=== PATIENT | male | born 1970 | race Caucasian/White ===

== ENCOUNTER 2024-03-22 18:21 | Inpatient (IN) ==
[2024-03-22] MEDS: ONDANSETRON INJ 2 MG/ML 2 ML VIAL IV STA (18:46)
[2024-03-22 19:07] LABS: Basophils # (auto) 0.03 K/uL (0.00-0.20); Basophils % (auto) 0.6 %; Eosinophils # (auto) 0.03 K/uL (0.00-0.50); Eosinophils % (auto) 0.6 %; Hematocrit (blood only) 41.8 % (42.0-52.0); Hemoglobin 15.2 g/dl (14.0-18.0); Immature Granulocytes # (auto) 0.02 K/uL (0.01-0.20); Immature Granulocytes % (auto) 0.4 %; Lymphocytes % (auto) 18.6 %; Mean Corpuscular Hemoglobin 32.9 pg (25.0-34.0); Mean Corpuscular Hgb Conc 36.4 g/dL (32.0-36.0); Mean Corpuscular Volume 90.5 fL (80.0-100.0); Mean Platelet Volume 9.5 fL (9.4-12.4); Monocytes # (auto) 0.38 K/uL (0.11-0.59); Monocytes % (auto) 7.8 %; Neutrophils # (auto) 3.49 K/uL (1.40-6.50); Platelet Count 225 K/uL (130-400); RDW Coefficient of Variation 11.9 % (11.5-14.5); RDW Standard Deviation 39.3 fL (36.4-46.3); Red Blood Count 4.62 M/uL (4.70-6.10); White Blood Count 4.85 K/ul (4.8-10.8)
[2024-03-22] MEDS: hydrALAZINE HCL 20 MG/ML VIAL IV STA ×2 (19:21→20:17)
[2024-03-22 19:22] LABS: Albumin Globulin Ratio 1.4 (0.9-2); Albumin Level 4.6 gm/dl (3.4-5.0); BUN Creatinine Ratio 7.3 (10-20); Bilirubin,Total 0.7 mg/dl (0.2-1.0); Calcium 9.5 mg/dl (8.6-10.3); Creatinine Clr Calc Pharmacy 121.7 ml/min; Globulin 3.3 gm/dl (2.5-4.0); Magnesium 1.8 mg/dl (1.7-2.4); Potassium 4.5 mmol/L (3.5-5.1); Total Protein 7.9 gm/dl (6.0-8.3)
--- NOTE | 2024-03-22 19:24 | Emergency Department Note ---
Impression & Plan Nausea & vomiting, Hypertensive urgency, Atrial fibrillation with rapid ventricular response ED Provider Note HISTORY OF PRESENT ILLNESS: Patient is a 54-year-old male presenting with persistent vomiting. Patient was seen earlier in the emergency department after being evaluated for a fall downstairs 3 days ago. Patient denies losing consciousness with the episode. He states that he had been instructed that he may have a concussion from his discharge earlier today. He was discharged with concussion precautions and patient states when he went home to lay down he immediately had to run to the bathroom because he started vomiting. Family reports she has had 4-5 episodes of vomiting since discharge. Patient denies any current abdominal pain or nausea. Denies any chest pain or shortness of breath. He is complaining of a pain in the back of his head. Denies any changes in vision. Denies any numbness or tingling or weakness in extremities. He was started on lisinopril earlier today on his discharge from the ER. Patient denies any anticoagulation or antiplatelet use. ROS: as above PHYSICAL EXAM: Constitutional: Patient appears in no acute distress. HENT: Head: Normocephalic and atraumatic. Eyes: EOMI, PERRL Mouth/Throat: Mucous membranes moist. Neck: Trachea midline. Neck supple. No midline cervical spine TTP Cardiovascular: RRR, No murmurs, rubs or gallops. Intact distal pulses. Pulmonary/Chest: No respiratory distress. Breath sounds clear and equal bilaterally. No wheezes or rales. Abdominal: Abdomen soft, no tenderness, rebound or guarding. Musculoskeletal: No edema, tenderness or deformity noted. Skin: Warm and dry. No rash, erythema, pallor or cyanosis Psychiatric: Appropriate mood and affect for situation. Neurological: Alert and keenly responsive. CN II-XII grossly intact, moving all extremities equally and fully. MDM: - Vitals signs showed hypertension. - History obtained via patient. History as above. - Chronic conditions affecting care: DM-2; HLD; GERD; HTN - Differential diagnoses include, but are not limited to: Electrolyte abnormality; ACS; intracranial hemorrhage; dehydration - Order placed for continuous cardiac monitoring. At this time, monitor showed rate of 96 bpm with normal sinus rhythm, per my interpretation. - External medical records reviewed. Primary care visit note dated 04/02/2023 was reviewed. Patient follows in their clinic for his GERD and type 2 diabetes. He is also seen for his hypertension and was on lisinopril 5 mg. - Laboratory workup interpreted by myself showed normal WBC; normal hemoglobin; elevated lactate (2.5); normal electrolytes; hyperglycemia (glucose 199); normal lipase; normal troponin - UA negative for infection - Viral respiratory panel negative - Given patient's repeat fall and persistent vomiting, repeat CT head was obtained. CT head from earlier today was negative. CT head without contrast negative for acute pathology. - Patient given 4 mg IV zofran for nausea and 10 mg IV hydralazine for his BP. Minimal improvement in blood pressure. A repeat 10 mg IV hydralazine was ordered. Blood pressure did trend downward to the 180s systolic. - Around 21:00, patient was noted to go into atrial fibrillation on the monitor. An EKG was obtained and interpreted by myself at 21:06 showed atrial fibrillation. Rate tachycardic at 136 bpm. QT 258. No acute ischemic changes. - 20 mg IV cardizem and cardizem gtt ordered. TSH added to workup. - Patient given 1L NS for hydration in setting of multiple episodes of vomiting - Discussion was had with rifle case repairer about patient's case and need for admission - Hospitalist, Dr. Portillo, consulted for admission - Patient admitted to [facility] for further evaluation and management. I have personally spent 63 minutes of critical care time in the direct management of this patient. This includes bedside care, interpretation of diagnostic studies, and testing, discussion with consultants, patient, and family members, and other required patient management activities. This 63 minutes is in excess of all separately billable procedures. ASSESSMENT AND PLAN: Diagnosis: Nausea and vomiting; hypertensive urgency; A-fib with RVR Plan: admit Past Med/Surg History Problem List (Updated 03/22/24 @ 22:02 by Alexia Carrasquillo MD) Atrial fibrillation with rapid ventricular response (Acute) Hypertensive urgency (Acute) Nausea & vomiting (Acute) Headache (Acute) Right groin pain (Acute) Closed head injury (Acute) Fall down steps (Acute) Examination, routine, over 18 years of age Chronic gastroesophageal reflux disease Dyslipidemia Glaucoma Type 2 diabetes mellitus Medical History Examination, routine, over 18 years of age Glaucoma Type 2 diabetes mellitus Surgical History History of shoulder surgery Family History Mother Myocardial infarction Brother Diabetes Father Prostate cancer Sister Bone cancer Denies family history of Ovarian cancer Breast cancer Colorectal cancer Social History Smoking Status: Never smoker Tobacco Type: Smokeless Tobacco (Dip or Chew) Second Hand Exposure: No; Do You Dip or Chew Tobacco: Yes; Hx Alcohol Use: Yes Alcohol type: beer Alcohol Intake Frequency: Monthly or Less Hx Substance Use: No Preferred Language: Faroese Communication Ability: Effective Visual Impairment: No Limitations Hearing Ability: Normal Convertible Sofa Bedspring Tester Required: No marital status: Current Living Situation: Alone current occupational status: employed 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 How many Children do You have: 1 Feels Safe at Home: Yes Childhood Exposure to Second-Hand Smoke: Yes Diet: regular caffeine: Yes during the past year weight has: remained stable Dental Care, Regularly: No Physical Activity Frequency: Daily Seatbelt Use: always Sunscreen Use: No Assistive Devices: Glasses Allergies Allergies Allergy/AdvReac Type Severity Reaction Status Date / Time No Known Allergies Allergy Unverified 04/02/23 10:28 Home Meds Home Medications Medication Instructions Recorded Confirmed aspirin 81 mg tablet,delayed 81 mg PO DAILY 05/15/18 04/02/23 release atorvastatin 80 mg tablet 80 mg PO DAILY 05/15/18 04/02/23 meloxicam 7.5 mg tablet 7.5 mg PO DAILY PRN 04/02/23 Previous Rx's Medication Instructions Recorded cholecalciferol (vitamin D3) 125 125 mcg PO DAILY #90 caps 12/24/22 mcg (5,000 unit) capsule magnesium oxide 400 mg PO DAILY #90 caps 12/24/22 lisinopril 2.5 mg tablet 5 mg (2 x 2.5 mg) PO DAILY #90 tabs 12/30/22 metformin 500 mg tablet 500 mg PO BID #90 tabs 12/30/22 ezetimibe 10 mg tablet (Zetia) 10 mg PO DAILY #30 tabs 01/05/23 lisinopril 5 mg tablet 5 mg PO DAILY #30 tabs 03/22/24 metformin 500 mg tablet,extended 500 mg PO DAILY #30 tabs 03/22/24 release 24 hr Results & Data (ED) Vital Signs Vital Signs - 24 hr 03/22/24 18:28 03/22/24 19:11 03/22/24 19:14 Temperature 36.8 C Temperature Source Temporal Artery Scan Pulse Rate 89 Pulse Rate [Apical] 81 93 H Pulse Rate from SpO2 Sensor Pulse Rhythm Regular Pulse Strength Normal Respiratory Rate 20 16 19 Respiratory Effort / Characteristics Non-Labored Spontaneous Non-Labored Spontaneous Respiratory Depth Normal Normal Respiratory Pattern Regular Blood Pressure 227/130 H Blood Pressure [Right Arm] 225/168 H 216/106 H Blood Pressure Mean 162 Blood Pressure Mean [Right Arm] 187 142 Blood Pressure Position Sitting Blood Pressure Position [Right Arm] Sitting Sitting Pulse Oximetry 97 99 98 Oxygen Delivery Method Room Air Room Air Room Air Sepsis Recent Fever Within 48 Hours No Sepsis New/Unexplained Change in Mental Status No Sepsis Action Taken by Nursing No Action Required 03/22/24 19:20 03/22/24 19:36 03/22/24 19:45 Temperature Temperature Source Pulse Rate Pulse Rate [Apical] 96 H 93 H Pulse Rate from SpO2 Sensor Pulse Rhythm Pulse Strength Respiratory Rate Respiratory Effort / Characteristics Respiratory Depth Respiratory Pattern Blood Pressure 184/105 H Blood Pressure [Right Arm] 211/143 H 212/97 H Blood Pressure Mean 133 Blood Pressure Mean [Right Arm] 165 135 Blood Pressure Position Blood Pressure Position [Right Arm] Sitting Sitting Pulse Oximetry Oxygen Delivery Method Sepsis Recent Fever Within 48 Hours Sepsis New/Unexplained Change in Mental Status Sepsis Action Taken by Nursing 03/22/24 19:45 03/22/24 20:00 03/22/24 20:03 Temperature Temperature Source Pulse Rate 96 H 96 H Pulse Rate [Apical] Pulse Rate from SpO2 Sensor 93 H 89 Pulse Rhythm Pulse Strength Respiratory Rate 17 16 Respiratory Effort / Characteristics Respiratory Depth Respiratory Pattern Blood Pressure 184/103 H Blood Pressure [Right Arm] Blood Pressure Mean 134 Blood Pressure Mean [Right Arm] Blood Pressure Position Blood Pressure Position [Right Arm] Pulse Oximetry 98 95 Oxygen Delivery Method Room Air Room Air Sepsis Recent Fever Within 48 Hours Sepsis New/Unexplained Change in Mental Status Sepsis Action Taken by Nursing 03/22/24 20:16 03/22/24 20:30 03/22/24 20:33 Temperature Temperature Source Pulse Rate 112 H Pulse Rate [Apical] 102 H Pulse Rate from SpO2 Sensor 85 Pulse Rhythm Pulse Strength Respiratory Rate 18 19 Respiratory Effort / Characteristics Respiratory Depth Respiratory Pattern Blood Pressure 206/111 H Blood Pressure [Right Arm] 210/95 H Blood Pressure Mean 141 Blood Pressure Mean [Right Arm] 133 Blood Pressure Position Blood Pressure Position [Right Arm] Sitting Pulse Oximetry 98 98 Oxygen Delivery Method Room Air Room Air Sepsis Recent Fever Within 48 Hours Sepsis New/Unexplained Change in Mental Status Sepsis Action Taken by Nursing 03/22/24 20:39 03/22/24 20:45 03/22/24 21:08 Temperature Temperature Source Pulse Rate 116 H 146 H Pulse Rate [Apical] Pulse Rate from SpO2 Sensor 88 Pulse Rhythm Pulse Strength Respiratory Rate 19 Respiratory Effort / Characteristics Respiratory Depth Respiratory Pattern Blood Pressure 199/107 H Blood Pressure [Right Arm] Blood Pressure Mean 164 Blood Pressure Mean [Right Arm] Blood Pressure Position Blood Pressure Position [Right Arm] Pulse Oximetry 97 Oxygen Delivery Method Room Air Sepsis Recent Fever Within 48 Hours Sepsis New/Unexplained Change in Mental Status Sepsis Action Taken by Nursing 03/22/24 21:15 03/22/24 21:15 03/22/24 21:30 Temperature Temperature Source Pulse Rate 148 H Pulse Rate [Apical] Pulse Rate from SpO2 Sensor 136 H Pulse Rhythm Pulse Strength Respiratory Rate 16 Respiratory Effort / Characteristics Respiratory Depth Respiratory Pattern Blood Pressure 166/107 H 139/102 H Blood Pressure [Right Arm] Blood Pressure Mean 139 126 Blood Pressure Mean [Right Arm] Blood Pressure Position Blood Pressure Position [Right Arm] Pulse Oximetry 96 Oxygen Delivery Method Room Air Sepsis Recent Fever Within 48 Hours Sepsis New/Unexplained Change in Mental Status Sepsis Action Taken by Nursing 03/22/24 21:33 03/22/24 21:39 03/22/24 21:45 Temperature Temperature Source Pulse Rate 120 H 135 H Pulse Rate [Apical] Pulse Rate from SpO2 Sensor 124 H 139 H Pulse Rhythm Pulse Strength Respiratory Rate 18 17 Respiratory Effort / Characteristics Respiratory Depth Respiratory Pattern Blood Pressure 137/97 Blood Pressure [Right Arm] Blood Pressure Mean 103 Blood Pressure Mean [Right Arm] Blood Pressure Position Blood Pressure Position [Right Arm] Pulse Oximetry 97 96 Oxygen Delivery Method Room Air Room Air Sepsis Recent Fever Within 48 Hours Sepsis New/Unexplained Change in Mental Status Sepsis Action Taken by Nursing Laboratory Data 03/22/24 18:46 03/22/24 18:46 Lab Results 03/22/24 03/22/24 03/22/24 Range/Units 18:46 19:14 20:25 WBC 4.85 (4.8-10.8) K/ul RBC 4.62 L (4.70-6.10) M/uL Hgb 15.2 (14.0-18.0) g/dl Hct 41.8 L (42.0-52.0) % MCV 90.5 (80.0-100.0) fL MCH 32.9 (25.0-34.0) pg MCHC 36.4 H (32.0-36.0) g/dL RDW Std Deviation 39.3 (36.4-46.3) fL RDW Coeff of Noe 11.9 (11.5-14.5) % Plt Count 225 (130-400) K/uL MPV 9.5 (9.4-12.4) fL Immature Gran % (Auto) 0.4 % Neut % (Auto) 72.0 % Lymph % (Auto) 18.6 % Stewart % (Auto) 7.8 % Eos % (Auto) 0.6 % Baso % (Auto) 0.6 % Neut # (Auto) 3.49 (1.40-6.50) K/uL Lymph # (Auto) 0.90 L (1.20-3.40) K/uL Stewart # (Auto) 0.38 (0.11-0.59) K/uL Eos # (Auto) 0.03 (0.00-0.50) K/uL Baso # (Auto) 0.03 (0.00-0.20) K/uL Immature Gran # (Auto) 0.02 (0.01-0.20) K/uL Sodium 136 (136-145) mmol/L Potassium 4.5 (3.5-5.1) mmol/L Chloride 99 (98-107) mmol/L Carbon Dioxide 29 (21-32) mmol/L Anion Gap 8 (3-11) BUN 6 (6-23) mg/dl Creatinine 0.82 (0.6-1.4) mg/dl Est Cr Clr Drug Dosing 121.7 ml/min eGFR 103.74 BUN/Creatinine Ratio 7.3 L (10-20) Glucose 199 H (70-99(Fasting)) mg/dl Lactate 2.5 H* (0.4-2.0) mmol/L Calcium 9.5 (8.6-10.3) mg/dl Magnesium 1.8 (1.7-2.4) mg/dl Total Bilirubin 0.7 (0.2-1.0) mg/dl AST 31 (13-39) U/L ALT 28 (7-52) U/L Alkaline Phosphatase 48 (34-104) U/L Troponin I High Sens (0-20) pg/ml Total Protein 7.9 (6.0-8.3) gm/dl Albumin 4.6 (3.4-5.0) gm/dl Globulin 3.3 (2.5-4.0) gm/dl Albumin/Globulin Ratio 1.4 (0.9-2) Lipase 31 (11-82) U/L Urine Color Yellow Urine Appearance Clear (Clear) Urine pH 6.5 (4.5-7.5) Ur Specific [place] 1.005 (1.000-1.030) Urine Protein Trace H (Negative) Urine Glucose (UA) Trace H (Negative) Urine Ketones Negative (Negative) Urine Blood Negative (Negative) Urine Nitrite Negative (Negative) Urine Bilirubin Negative (Negative) Urine Urobilinogen Negative (Negative) Ur Leukocyte Esterase Negative (Negative) Urine WBC (Auto) 0-5 (0-5) /hpf Urine RBC (Auto) 0-2 (0-2) /hpf U Hyaline Cast (Auto) 0-2 (0-2) /lpf U Epithel Cells (Auto) 0-2 (0-2) /hpf Urine Bacteria (Auto) None Seen (None Seen) Adenovirus (PCR) Not Detected (NotDetected) B. pertussis DNA (PCR) Not Detected (NotDetected) B.parapertussis DNA PCR Not Detected (NotDetected) C. pneumoniae DNA (PCR) Not Detected (NotDetected) Coronavirus OC43 (PCR) Not Detected (NotDetected) Coronavirus HKU1 (PCR) Not Detected (NotDetected) Coronavirus 229E (PCR) Not Detected (NotDetected) SARS-CoV-2 (PCR) Not Detected (NotDetected) Coronavirus NL63 (PCR) Not Detected (NotDetected) Human Metapneumovir PCR Not Detected (NotDetected) Influenza Type A (PCR) Not Detected (NotDetected) Influenza Type B (PCR) Not Detected (NotDetected) M. pneumoniae (PCR) Not Detected (NotDetected) Parainfluenza 1 (PCR) Not Detected (NotDetected) Parainfluenza 2 (PCR) Not Detected (NotDetected) Parainfluenza 3 (PCR) Not Detected (NotDetected) Parainfluenza 4 (PCR) Not Detected (NotDetected) RSV (PCR) Not Detected (NotDetected) Entero/Rhino (PCR) Not Detected (NotDetected) 03/22/24 Range/Units 21:20 WBC (4.8-10.8) K/ul RBC (4.70-6.10) M/uL Hgb (14.0-18.0) g/dl Hct (42.0-52.0) % MCV (80.0-100.0) fL MCH (25.0-34.0) pg MCHC (32.0-36.0) g/dL RDW Std Deviation (36.4-46.3) fL RDW Coeff of Noe (11.5-14.5) % Plt Count (130-400) K/uL MPV (9.4-12.4) fL Immature Gran % (Auto) % Neut % (Auto) % Lymph % (Auto) % Stewart % (Auto) % Eos % (Auto) % Baso % (Auto) % Neut # (Auto) (1.40-6.50) K/uL Lymph # (Auto) (1.20-3.40) K/uL Stewart # (Auto) (0.11-0.59) K/uL Eos # (Auto) (0.00-0.50) K/uL Baso # (Auto) (0.00-0.20) K/uL Immature Gran # (Auto) (0.01-0.20) K/uL Sodium (136-145) mmol/L Potassium (3.5-5.1) mmol/L Chloride (98-107) mmol/L Carbon Dioxide (21-32) mmol/L Anion Gap (3-11) BUN (6-23) mg/dl Creatinine (0.6-1.4) mg/dl Est Cr Clr Drug Dosing ml/min eGFR BUN/Creatinine Ratio (10-20) Glucose (70-99(Fasting)) mg/dl Lactate 2.6 H* (0.4-2.0) mmol/L Calcium (8.6-10.3) mg/dl Magnesium (1.7-2.4) mg/dl Total Bilirubin (0.2-1.0) mg/dl AST (13-39) U/L ALT (7-52) U/L Alkaline Phosphatase (34-104) U/L Troponin I High Sens 11.1 (0-20) pg/ml Total Protein (6.0-8.3) gm/dl Albumin (3.4-5.0) gm/dl Globulin (2.5-4.0) gm/dl Albumin/Globulin Ratio (0.9-2) Lipase (11-82) U/L Urine Color Urine Appearance (Clear) Urine pH (4.5-7.5) Ur Specific [place] (1.000-1.030) Urine Protein (Negative) Urine Glucose (UA) (Negative) Urine Ketones (Negative) Urine Blood (Negative) Urine Nitrite (Negative) Urine Bilirubin (Negative) Urine Urobilinogen (Negative) Ur Leukocyte Esterase (Negative) Urine WBC (Auto) (0-5) /hpf Urine RBC (Auto) (0-2) /hpf U Hyaline Cast (Auto) (0-2) /lpf U Epithel Cells (Auto) (0-2) /hpf Urine Bacteria (Auto) (None Seen) Adenovirus (PCR) (NotDetected) B. pertussis DNA (PCR) (NotDetected) B.parapertussis DNA PCR (NotDetected) C. pneumoniae DNA (PCR) (NotDetected) Coronavirus OC43 (PCR) (NotDetected) Coronavirus HKU1 (PCR) (NotDetected) Coronavirus 229E (PCR) (NotDetected) SARS-CoV-2 (PCR) (NotDetected) Coronavirus NL63 (PCR) (NotDetected) Human Metapneumovir PCR (NotDetected) Influenza Type A (PCR) (NotDetected) Influenza Type B (PCR) (NotDetected) M. pneumoniae (PCR) (NotDetected) Parainfluenza 1 (PCR) (NotDetected) Parainfluenza 2 (PCR) (NotDetected) Parainfluenza 3 (PCR) (NotDetected) Parainfluenza 4 (PCR) (NotDetected) RSV (PCR) (NotDetected) Entero/Rhino (PCR) (NotDetected) Administered Medications Diltiazem HCl 125 mg/ Dextrose 125 mls @ 5 mls/hr IV .Q24H [facility]; Protocol Stop: 04/21/24 21:14 Last Admin: 03/22/24 21:22 Dose: 5 mg/hr, 5 mls/hr Documented By: Co-signed By: DEBORAH Discontinued Medications Diltiazem HCl (Diltiazem Hcl 5 Mg/Ml 5 Ml Vial) 20 mg IV NOW STA Stop: 03/22/24 21:10 Last Admin: 03/22/24 21:20 Dose: 20 mg Documented By: Co-signed By: THAD Hydralazine HCl (Hydralazine Hcl 20 Mg/Ml Vial) 10 mg IV NOW STA Stop: 03/22/24 19:17 Last Admin: 03/22/24 19:21 Dose: 10 mg Documented By: Hydralazine HCl (Hydralazine Hcl 20 Mg/Ml Vial) 10 mg IV NOW STA Stop: 03/22/24 19:53 Last Admin: 03/22/24 20:17 Dose: 10 mg Documented By: Ondansetron HCl (Ondansetron Inj 2 Mg/Ml 2 Ml Vial) 4 mg IV NOW STA Stop: 03/22/24 18:33 Last Admin: 03/22/24 18:46 Dose: 4 mg Documented By: SARAH Imaging Data Radiologist's Impression: Head CT 03/22/24 19:16 Exam(s): CT HEAD Without Contrast EXAM: CT Head Without Intravenous Contrast CLINICAL HISTORY: Reason for exam: persistent vomiting; headache. TECHNIQUE: Axial computed tomography images of the head/brain without intravenous contrast. CTDI is 62.5 mGy and DLP is 1098.96 mGy-cm. Automated exposure control was utilized for the study. A dose lowering technique was utilized adhering to the principles of ALARA. COMPARISON: at 1056 hrs. FINDINGS: Brain: Mild chronic small vessel ischemic change. No hemorrhage. No edema. No midline shift. Tamayo-white matter differentiation maintained. Ventricles: Unremarkable. No hydrocephalus. Bones/joints: Unremarkable. No acute fracture. Soft tissues: Unremarkable. Sinuses: Moderate mucosal thickening right maxillary sinus. Mild mucosal thickening left maxillary sinus. Vasculature: Intracranial atherosclerosis. Mastoid air cells: Unremarkable as visualized. No mastoid effusion. IMPRESSION: No acute intracranial process. Electronically signed by: Feliciano Coffey M.D. 03/22/24 19:53 PM Discharge Plan Visit Data Chief Complaint: Abdominal Pain Stated Complaint: VOMITING, POS CONCUSSION, ABD PAIN, ED Provider: Alexia Carrasquillo Discharge Problem: Nausea & vomiting, Hypertensive urgency, Atrial fibrillation with rapid ventricular response Forms Stand Alone Forms: My [facility] Prescriptions Prescriptions: No Action lisinopril 2.5 mg tablet 5 mg PO DAILY Qty: 90 3RF metformin 500 mg tablet 500 mg PO BID Qty: 90 3RF ezetimibe [Zetia] 10 mg tablet 10 mg PO DAILY Qty: 30 2RF meloxicam 7.5 mg tablet 7.5 mg PO DAILY PRN cholecalciferol (vitamin D3) 125 mcg (5,000 unit) capsule 125 mcg PO DAILY Qty: 90 3RF magnesium oxide 400 mg magnesium capsule 400 mg PO DAILY Qty: 90 3RF atorvastatin 80 mg tablet 80 mg PO DAILY aspirin 81 mg Tablet,Delayed Release (Dr/Ec) 81 mg PO DAILY lisinopril 5 mg tablet 5 mg PO DAILY Qty: 30 0RF metformin 500 mg tablet extended release 24 hr 500 mg PO DAILY Qty: 30 0RF Rx Instructions: To be taken near dinner time Referrals Referrals: Cira Moseley DO [Primary Care Provider] -
--- NOTE | 2024-03-22 19:54 | CT Scan Report ---
Exam(s): CT HEAD Without Contrast EXAM: CT Head Without Intravenous Contrast CLINICAL HISTORY: Reason for exam: persistent vomiting; headache. TECHNIQUE: Axial computed tomography images of the head/brain without intravenous contrast. CTDI is 62.5 mGy and DLP is 1098.96 mGy-cm. Automated exposure control was utilized for the study. A dose lowering technique was utilized adhering to the principles of ALARA. COMPARISON: at 1056 hrs. FINDINGS: Brain: Mild chronic small vessel ischemic change. No hemorrhage. No edema. No midline shift. Tamayo-white matter differentiation maintained. Ventricles: Unremarkable. No hydrocephalus. Bones/joints: Unremarkable. No acute fracture. Soft tissues: Unremarkable. Sinuses: Moderate mucosal thickening right maxillary sinus. Mild mucosal thickening left maxillary sinus. Vasculature: Intracranial atherosclerosis. Mastoid air cells: Unremarkable as visualized. No mastoid effusion. IMPRESSION: No acute intracranial process. Electronically signed by: Feliciano Coffey M.D. 03/22/24 19:53 PM
[2024-03-22 20:14] LABS: Adenovirus PCR Not Detected (NotDetected); Bordetella parapertussis PCR Not Detected (NotDetected); Bordetella pertussis PCR Not Detected (NotDetected); Chlamydia pneumoniae PCR Not Detected (NotDetected); Coronavirus 229E PCR Not Detected (NotDetected); Coronavirus CoV-2 (COVID19)PCR Not Detected (NotDetected); Coronavirus HKU1 PCR Not Detected (NotDetected); Coronavirus NL63 PCR Not Detected (NotDetected); Coronavirus OC43PCR Not Detected (NotDetected); Human Metapneumovirus PCR Not Detected (NotDetected); Influenza A PCR Not Detected (NotDetected); Influenza B PCR Not Detected (NotDetected); Mycoplasma pneumoniae PCR Not Detected (NotDetected); Parainfluenza Virus 1 PCR Not Detected (NotDetected); Parainfluenza Virus 2 PCR Not Detected (NotDetected); Parainfluenza Virus 3 PCR Not Detected (NotDetected); Parainfluenza Virus 4 PCR Not Detected (NotDetected); Respiratory Syncytial VirusPCR Not Detected (NotDetected); Rhinovirus/Enterovirus PCR Not Detected (NotDetected)
[2024-03-22 20:38] LABS: Appearance Urine Clear (Clear); Bacteria Urine Automated None Seen (None Seen); Bilirubin Urine Negative (Negative); Blood Urine Negative (Negative); Cast Urine Automated 0-2 /lpf (0-2); Color Urine Yellow; Epithelial Cell Urine Auto 0-2 /hpf (0-2); Glucose Urine UA Trace (Negative); Ketones Urine Negative (Negative); Leukocyte Esterase Urine Negative (Negative); Nitrite Urine Negative (Negative); Protein Urine Trace (Negative); RBC Urine Automated 0-2 /hpf (0-2); Specific Gravity Urine 1.005 (1.000-1.030); Urobilinogen Urine Negative (Negative); WBC Urine Automated 0-5 /hpf (0-5); pH Urine 6.5 (4.5-7.5)
[2024-03-22] MEDS: dilTIAZem HCl 5 MG/ML 5 ML VIAL IV STA (21:20)
[2024-03-22] MEDS: dilTIAZem HCL 125 MG in DEXTROSE 5% 100 ML IV SCH (21:22)
[2024-03-22 22:02] LABS: Troponin I High Sensitivity 11.1 pg/ml (0-20)
[2024-03-22 22:11] LABS: Thyroid Stimulating Hormone 1.45 uIu/ml (0.300-4.500)
[2024-03-22] MEDS: SODIUM CHLORIDE 0.9% 1,000 ML IV ONE (22:22)
[2024-03-22] MEDS: MAGNESIUM SULFATE / D5W 1 GM/100 ML BAG IV SCH (23:32)
[2024-03-22] MEDS: STAT IV Infusion **Titration per Protocol STA (23:35)
[2024-03-22] MEDS: dilTIAZem HCL 30 MG TAB PO ONE (23:38)
[2024-03-23] MEDS ORDERED: ACETAMINOPHEN 325 MG TAB PO PRN (00:43)
[2024-03-23] MEDS ORDERED: LORazepam 0.5 MG TAB PO PRN (01:00)
--- NOTE | 2024-03-23 01:01 | History & Physical Report ---
Date of Service March 23, 2024 the patient was seen and examined on 03/22/24 Assessment & Plan (1) Atrial fibrillation with rapid ventricular response: (2) Hypertensive urgency: (3) Closed head injury: (4) Nausea & vomiting: Plan #The patient is a 54-year-old male with a past medical history including GERD, dyslipidemia, glaucoma, diabetes mellitus type 2, osteoarthritis, and low magnesium. He presents to the emergency department symptoms as noted above. When he developed atrial fibrillation with RVR after receiving IV hydralazine, he was started on Cardizem drip by the ED, and then referred to the hospitalist service for evaluation for admission #Atrial fibrillation with RVR/uncontrolled hypertension- The patient will be admitted to telemetry for serial cardiac enzymes, serial EKG's, cardiac rhythm monitoring and a 2-D echocardiogram with Dopplers. Hold lisinopril From the ED patient initially received hydralazine 10 mg IV x 2 He then received Cardizem 20 mg IV push followed by Cardizem drip at 5 mg/h And then given Cardizem 30 mg p.o. x 1 Patient later converted to normal sinus rhythm Patient was given a second Cardizem 30 mg p.o., with instruction to stop Cardizem drip 1 hour later Cardizem 30 mg p.o. 3 times daily, may need to be increased to 60 mg p.o. 3 times daily. In the morning could be changed over to Cardizem CD Consult cardiology, question for need of anticoagulation at this point EKG and rhythm monitoring did show variations of atrial fibrillation with RVR, atrial flutter, and sinus rhythm with PACs, before conversion to normal sinus rhythm Concussion- Likely explanation for symptoms of headache and nausea vomiting Symptoms have improved since his blood pressure and heart rate have been improved on Cardizem Diabetes mellitus- Glucose 199 on admission Holding metformin Placed on Accu-Cheks with NovoLog SSI Hyperlipidemia- Continue atorvastatin 80 mg daily and Zetia 10 mg daily Check a fasting panel Admission and Anticipated Discharge Date Admission Date: March 22, 2024 History of Present Illness Chief Complaint: The patient presents to the emergency department with complaint of having fallen down a set of 6 stairs backwards about 3 days ago, hitting the back of his head. He has had intermittent headaches since that time, but was tolerating them until this morning, when he developed some vomiting that family had him come to the ED for assessment. In the ED the morning of 03/22, he underwent a negative evaluation, was given instructions regarding concussion protocol, and returned home. As the day progressed, he continues to have issues with vomiting with reports having had 4-5 episodes of vomiting since he was discharged in the morning. He had been given lisinopril for elevated blood pressure,and when having still had persistent symptoms, he was given hydralazine IV, and was found to be in atrial fibrillation with RVR, started on Cardizem drip, and then pr esented to the [facility] hospitalist service for admission Primary Care Provider: Cira Moseley DO The patient is a 54-year-old male with a past medical history including GERD, dyslipidemia, glaucoma, diabetes mellitus type 2, osteoarthritis, and low magnesium. He presents to the emergency department symptoms as noted above. When he developed atrial fibrillation with RVR after receiving IV hydralazine, he was started on Cardizem drip by the ED, and then referred to the hospitalist service for evaluation for admission Allergies Allergy/AdvReac Type Severity Reaction Status Date / Time No Known Allergies Allergy Unverified 04/02/23 10:28 Home Medications Medication Instructions Recorded Confirmed Type aspirin 81 mg tablet,delayed 81 mg PO DAILY 05/15/18 04/02/23 History release atorvastatin 80 mg tablet 80 mg PO DAILY 05/15/18 04/02/23 History cholecalciferol (vitamin D3) 125 125 mcg PO DAILY #90 caps 12/24/22 04/02/23 Rx mcg (5,000 unit) capsule magnesium oxide 400 mg PO DAILY #90 caps 12/24/22 04/02/23 Rx lisinopril 2.5 mg tablet 5 mg (2 x 2.5 mg) PO DAILY #90 tabs 12/30/22 04/02/23 Rx metformin 500 mg tablet 500 mg PO BID #90 tabs 12/30/22 04/02/23 Rx ezetimibe 10 mg tablet (Zetia) 10 mg PO DAILY #30 tabs 01/05/23 04/02/23 Rx meloxicam 7.5 mg tablet 7.5 mg PO DAILY PRN 04/02/23 History lisinopril 5 mg tablet 5 mg PO DAILY #30 tabs 03/22/24 Rx metformin 500 mg tablet,extended 500 mg PO DAILY #30 tabs 03/22/24 Rx release 24 hr Past Med/Surg History Problem List (Updated 03/22/24 @ 22:02 by Alexia Carrasquillo MD) Atrial fibrillation with rapid ventricular response (Acute) Hypertensive urgency (Acute) Nausea & vomiting (Acute) Headache (Acute) Right groin pain (Acute) Closed head injury (Acute) Fall down steps (Acute) Examination, routine, over 18 years of age Chronic gastroesophageal reflux disease Dyslipidemia Glaucoma Type 2 diabetes mellitus Medical History Examination, routine, over 18 years of age Glaucoma Type 2 diabetes mellitus Surgical History History of shoulder surgery Family History Mother Myocardial infarction Brother Diabetes Father Prostate cancer Sister Bone cancer Denies family history of Ovarian cancer Breast cancer Colorectal cancer Social History Smoking Status: Former smoker Tobacco Type: Cigarettes Second Hand Exposure: No; Do You Dip or Chew Tobacco: Yes; Hx Alcohol Use: Yes Alcohol type: beer Alcohol Intake Frequency: Monthly or Less Hx Substance Use: No Preferred Language: Luxembourgish Communication Ability: Effective Visual Impairment: No Limitations Hearing Ability: Normal Soyfreeze Operator Required: No Beliefs That Will Affect Care: None marital status: Current Living Situation: Alone current occupational status: employed current occupation: [employer] How many Children do You have: 1 Other Information That Helps Us Care for You: No Feels Safe at Home: Yes Safety Concerns: Feels Safe At This Time Childhood Exposure to Second-Hand Smoke: Yes Diet: regular caffeine: Yes during the past year weight has: remained stable Dental Care, Regularly: No Physical Activity Frequency: Daily Seatbelt Use: always Sunscreen Use: No Assistive Devices: Glasses Review of Systems Review of Systems: The patient denies chest pain, palpitations, shortness of breath, dyspnea on exertion, cough, lower extremity swelling, sore throat, fevers, chills, sweats, diarrhea , constipation, abdominal pain, pelvic pain, blood in urine or stool, dysuria, urinary frequency or urgency, loss of consciousness, rash, abnormal bruising or bleeding, focal weakness, numbness or tingling in arms or legs, generalized arthralgias or myalgias, back or neck pain, or night sweats. The review of systems is otherwise negative other than for that already noted above, and at least 10 systems have been reviewed. Physical Exam Physical Exam: The patient is awake, alert and oriented 3, well developed and well nourished, normocephalic and atraumatic, lying in bed and in no acute distress. HEENT--PERRL, EOMI, mucous membranes and oropharynx normal Neck--supple. No JVD. No bruits. Thyroid normal, trachea midline, no adenopathy. Heart--normal S1 and S2. No murmurs, rubs or gallops. Lungs--clear bilaterally, no respiratory distress, no accessory muscle use. Abdomen--normal bowel sounds and soft. Nontender. Nondistended, no hernias or masses, no organomegaly. Extremities--no cyanosis or clubbing. No edema. There are good distal pulses b/l. Dermatologic--normal skin turgor, normal color, no abnormal lymph nodes, no rash. Neurologic--cranial nerves II through XII grossly intact. Rheumatologic--normal range of motion. Psychiatric--normal affect. Results & Data Results & Data Vital Signs (Past 12 Hours) Vital Signs Temp Pulse Pulse Resp BP BP Pulse Ox 03/22/24 23:45 104 H 18 162/100 H 98 03/22/24 23:45 108 H 19 162/100 H 95 03/22/24 23:36 113 H 206/115 H 93 03/22/24 23:28 154/107 H 03/22/24 22:45 116 H 23 189/111 H 94 03/22/24 22:30 113 H 15 184/100 H 96 03/22/24 22:22 115 H 03/22/24 22:15 171/82 H 03/22/24 21:57 123 H 22 96 03/22/24 21:45 137/97 03/22/24 21:39 135 H 17 96 03/22/24 21:33 120 H 18 97 03/22/24 21:30 139/102 H 03/22/24 21:15 148 H 16 96 03/22/24 21:15 166/107 H 03/22/24 21:08 146 H 03/22/24 20:45 199/107 H 01/01/25 20:39 116 H 19 97 03/22/24 20:33 112 H 19 98 03/22/24 20:30 206/111 H 03/22/24 20:16 102 H 18 210/95 H 98 03/22/24 20:03 96 H 16 95 03/22/24 20:00 184/103 H 03/22/24 19:45 96 H 17 98 03/22/24 19:45 184/105 H 03/22/24 19:36 93 H 212/97 H 03/22/24 19:20 96 H 211/143 H 03/22/24 19:14 93 H 19 216/106 H 98 03/22/24 19:11 81 16 225/168 H 99 03/22/24 18:28 36.8 C 89 20 227/130 H 97 O2 Del Method 03/22/24 23:45 Room Air 03/22/24 23:45 Room Air 03/22/24 23:36 Room Air 03/22/24 23:28 03/22/24 22:45 Room Air 03/22/24 22:30 Room Air 03/22/24 22:22 03/22/24 22:15 03/22/24 21:57 Room Air 03/22/24 21:45 03/22/24 21:39 Room Air 03/22/24 21:33 Room Air 03/22/24 21:30 03/22/24 21:15 Room Air 03/22/24 21:15 03/22/24 21:08 03/22/24 20:45 03/22/24 20:39 Room Air 03/22/24 20:33 Room Air 03/22/24 20:30 03/22/24 20:16 Room Air 03/22/24 20:03 Room Air 03/22/24 20:00 03/22/24 19:45 Room Air 03/22/24 19:45 03/22/24 19:36 03/22/24 19:20 03/22/24 19:14 Room Air 03/22/24 19:11 Room Air 03/22/24 18:28 Room Air Laboratory Results Laboratory Results WBC 4.85 K/ul (4.8-10.8) 03/22/24 18:46 RBC 4.62 M/uL (4.70-6.10) L 03/22/24 18:46 Hgb 15.2 g/dl (14.0-18.0) 03/22/24 18:46 Hct 41.8 % (42.0-52.0) L 03/22/24 18:46 MCV 90.5 fL (80.0-100.0) 03/22/24 18:46 MCH 32.9 pg (25.0-34.0) 03/22/24 18:46 MCHC 36.4 g/dL (32.0-36.0) H 03/22/24 18:46 RDW Std Deviation 39.3 fL (36.4-46.3) 03/22/24 18:46 RDW Coeff of Noe 11.9 % (11.5-14.5) 03/22/24 18:46 Plt Count 225 K/uL (130-400) 03/22/24 18:46 MPV 9.5 fL (9.4-12.4) 03/22/24 18:46 Immature Gran % (Auto) 0.4 % 03/22/24 18:46 Neut % (Auto) 72.0 % 03/22/24 18:46 Lymph % (Auto) 18.6 % 03/22/24 18:46 [place] % (Auto) 7.8 % 03/22/24 18:46 Eos % (Auto) 0.6 % 03/22/24 18:46 Baso % (Auto) 0.6 % 03/22/24 18:46 Neut # (Auto) 3.49 K/uL (1.40-6.50) 03/22/24 18:46 Lymph # (Auto) 0.90 K/uL (1.20-3.40) L 03/22/24 18:46 [place] # (Auto) 0.38 K/uL (0.11-0.59) 03/22/24 18:46 Eos # (Auto) 0.03 K/uL (0.00-0.50) 03/22/24 18:46 Baso # (Auto) 0.03 K/uL (0.00-0.20) 03/22/24 18:46 Immature Gran # (Auto) 0.02 K/uL (0.01-0.20) 03/22/24 18:46 Sodium 136 mmol/L (136-145) 03/22/24 18:46 Potassium 4.5 mmol/L (3.5-5.1) 03/22/24 18:46 Chloride 99 mmol/L (98-107) 03/22/24 18:46 Carbon Dioxide 29 mmol/L (21-32) 03/22/24 18:46 Anion Gap 8 (3-11) 03/22/24 18:46 BUN 6 mg/dl (6-23) 03/22/24 18:46 Creatinine 0.82 mg/dl (0.6-1.4) 03/22/24 18:46 Est Cr Clr Drug Dosing 121.7 ml/min 03/22/24 18:46 eGFR 103.74 03/22/24 18:46 BUN/Creatinine Ratio 7.3 (10-20) L 03/22/24 18:46 Glucose 199 mg/dl (70-99(Fasting)) H 03/22/24 18:46 Lactate 2.6 mmol/L (0.4-2.0) H* 03/22/24 21:20 Calcium 9.5 mg/dl (8.6-10.3) 03/22/24 18:46 Magnesium 1.8 mg/dl (1.7-2.4) 03/22/24 18:46 Total Bilirubin 0.7 mg/dl (0.2-1.0) 03/22/24 18:46 AST 31 U/L (13-39) 03/22/24 18:46 ALT 28 U/L (7-52) 03/22/24 18:46 Alkaline Phosphatase 48 U/L (34-104) 03/22/24 18:46 Troponin I High Sens 11.1 pg/ml (0-20) 03/22/24 21:20 Total Protein 7.9 gm/dl (6.0-8.3) 03/22/24 18:46 Albumin 4.6 gm/dl (3.4-5.0) 03/22/24 18:46 Globulin 3.3 gm/dl (2.5-4.0) 03/22/24 18:46 Albumin/Globulin Ratio 1.4 (0.9-2) 03/22/24 18:46 Lipase 31 U/L (11-82) 03/22/24 18:46 TSH 1.450 uIu/ml (0.300-4.500) 03/22/24 21:20 Urine Color Yellow 03/22/24 20:25 Urine Appearance Clear (Clear) 03/22/24 20:25 Urine pH 6.5 (4.5-7.5) 03/22/24 20:25 Ur Specific [place] 1.005 (1.000-1.030) 03/22/24 20:25 Urine Protein Trace (Negative) H 03/22/24 20:25 Urine Glucose (UA) Trace (Negative) H 03/22/24 20:25 Urine Ketones Negative (Negative) 03/22/24 20:25 Urine Blood Negative (Negative) 03/22/24 20:25 Urine Nitrite Negative (Negative) 03/22/24 20:25 Urine Bilirubin Negative (Negative) 03/22/24 20:25 Urine Urobilinogen Negative (Negative) 03/22/24 20:25 Ur Leukocyte Esterase Negative (Negative) 03/22/24 20:25 Urine WBC (Auto) 0-5 /hpf (0-5) 03/22/24 20:25 Urine RBC (Auto) 0-2 /hpf (0-2) 03/22/24 20:25 U Hyaline Cast (Auto) 0-2 /lpf (0-2) 03/22/24 20:25 U Epithel Cells (Auto) 0-2 /hpf (0-2) 03/22/24 20:25 Urine Bacteria (Auto) None Seen (None Seen) 03/22/24 20:25 Adenovirus (PCR) Not Detected (NotDetected) 03/22/24 18:46 B. pertussis DNA (PCR) Not Detected (NotDetected) 03/22/24 18:46 B.parapertussis DNA PCR Not Detected (NotDetected) 03/22/24 18:46 C. pneumoniae DNA (PCR) Not Detected (NotDetected) 03/22/24 18:46 Coronavirus OC43 (PCR) Not Detected (NotDetected) 03/22/24 18:46 Coronavirus HKU1 (PCR) Not Detected (NotDetected) 03/22/24 18:46 Coronavirus 229E (PCR) Not Detected (NotDetected) 03/22/24 18:46 SARS-CoV-2 (PCR) Not Detected (NotDetected) 03/22/24 18:46 Coronavirus NL63 (PCR) Not Detected (NotDetected) 03/22/24 18:46 Human Metapneumovir PCR Not Detected (NotDetected) 03/22/24 18:46 Influenza Type A (PCR) Not Detected (NotDetected) 03/22/24 18:46 Influenza Type B (PCR) Not Detected (NotDetected) 03/22/24 18:46 M. pneumoniae (PCR) Not Detected (NotDetected) 03/22/24 18:46 Parainfluenza 1 (PCR) Not Detected (NotDetected) 03/22/24 18:46 Parainfluenza 2 (PCR) Not Detected (NotDetected) 03/22/24 18:46 Parainfluenza 3 (PCR) Not Detected (NotDetected) 03/22/24 18:46 Parainfluenza 4 (PCR) Not Detected (NotDetected) 03/22/24 18:46 RSV (PCR) Not Detected (NotDetected) 03/22/24 18:46 Entero/Rhino (PCR) Not Detected (NotDetected) 03/22/24 18:[address] 03/22/24 19:16 Exam(s): CT HEAD Without Contrast EXAM: CT Head Without Intravenous Contrast CLINICAL HISTORY: Reason for exam: persistent vomiting; headache. TECHNIQUE: Axial computed tomography images of the head/brain without intravenous contrast. CTDI is 62.5 mGy and DLP is 1098.96 mGy-cm. Automated exposure control was utilized for the study. A dose lowering technique was utilized adhering to the principles of ALARA. COMPARISON: at 1056 hrs. FINDINGS: Brain: Mild chronic small vessel ischemic change. No hemorrhage. No edema. No midline shift. Tamayo-white matter differentiation maintained. Ventricles: Unremarkable. No hydrocephalus. Bones/joints: Unremarkable. No acute fracture. Soft tissues: Unremarkable. Sinuses: Moderate mucosal thickening right maxillary sinus. Mild mucosal thickening left maxillary sinus. Vasculature: Intracranial atherosclerosis. Mastoid air cells: Unremarkable as visualized. No mastoid effusion. IMPRESSION: No acute intracranial process. Electronically signed by: Felicinao Coffey M.D. 03/22/24 19:53 PM Code Status & VTE Plan Code Status Full code VTE Prophylaxis Plan VTE Prophylaxis will be ordered: Yes PG Care Time/CCT Total # of Minutes Spent Total Time Spent with Patient: Total time spent is greater than 50% in coordination of care (as documented) at patient's floor/unit and/or counseling patient: Coding Level of Care Code 73502 INT INP/OBS CARE 3/75MIN Diagnoses Atrial fibrillation with rapid ventricular response I48.91 Hypertensive urgency I16.0 Closed head injury S09.90XA Nausea & vomiting R11.2
[2024-03-23] MEDS: dilTIAZem HCL 30 MG TAB PO ONE (02:06)
[2024-03-23] MEDS ORDERED: dilTIAZem HCl 5 MG/ML 5 ML VIAL IV PRN (03:00)
[2024-03-23] MEDS ORDERED: DEXTROSE 50% 50 ML SYRINGE IV PRN (04:37)
[2024-03-23] MEDS ORDERED: GLUCOSE 40% GEL 15 GM TUBE PO PRN (04:37)
[2024-03-23] MEDS ORDERED: CARBOHYDRATES FOR HYPOGLYCEMIA PO PRN (04:37)
[2024-03-23] MEDS ORDERED: GLUCAGON FOR INJ 1 MG VIAL SQ PRN (04:37)
[2024-03-23] MEDS ORDERED: GLUCOSE 10 TAB/TUBE PO PRN (04:37)
[2024-03-23 05:30] LABS: Basophils # (auto) 0.03 K/uL (0.00-0.20); Basophils % (auto) 0.5 %; Eosinophils # (auto) 0.02 K/uL (0.00-0.50); Eosinophils % (auto) 0.3 %; Hematocrit (blood only) 42.3 % (42.0-52.0); Hemoglobin 15.1 g/dl (14.0-18.0); Immature Granulocytes # (auto) 0.02 K/uL (0.01-0.20); Immature Granulocytes % (auto) 0.3 %; Lymphocytes % (auto) 10.3 %; Mean Corpuscular Hemoglobin 32.2 pg (25.0-34.0); Mean Corpuscular Hgb Conc 35.7 g/dL (32.0-36.0); Mean Corpuscular Volume 90.2 fL (80.0-100.0); Mean Platelet Volume 9.8 fL (9.4-12.4); Monocytes # (auto) 0.68 K/uL (0.11-0.59); Monocytes % (auto) 11.7 %; Neutrophils # (auto) 4.45 K/uL (1.40-6.50); Neutrophils % (auto) 76.9 %; Platelet Count 210 K/uL (130-400); RDW Coefficient of Variation 12.1 % (11.5-14.5); RDW Standard Deviation 39.7 fL (36.4-46.3); Red Blood Count 4.69 M/uL (4.70-6.10)
[2024-03-23 05:43] LABS: BUN Creatinine Ratio 8.9 (10-20); Calcium 8.9 mg/dl (8.6-10.3); Chol HDL Ratio 4.4 (0-5); Creatinine Clr Calc Pharmacy 126.3 ml/min; Magnesium 2.1 mg/dl (1.7-2.4); Phosphorus 2.6 mg/dl (2.5-4.9); Potassium 4.2 mmol/L (3.5-5.1)
[2024-03-23 05:47] LABS: Troponin I High Sensitivity 13.7 pg/ml (0-20)
[2024-03-23] MEDS: INSULIN ASPART PER UNIT CHARGE SC SCH (09:06)
[2024-03-23] MEDS: HEPARIN SOD 5,000 UNIT/0.5 ML VIAL SQ SCH (09:07)
[2024-03-23] MEDS: EZETIMIBE 10 MG TAB PO SCH (09:09)
[2024-03-23] MEDS: ATORVASTATIN 40 MG TAB PO SCH (09:09)
[2024-03-23] MEDS: dilTIAZem HCL 30 MG TAB PO SCH (09:10)
[2024-03-23] MEDS: MAGNESIUM OXIDE 400 MG TAB PO SCH (09:10)
[2024-03-23] MEDS: CHOLECALCIFEROL 125 MCG (5,000 UNITS) TAB PO SCH (09:10)
[2024-03-23] MEDS: ASPIRIN 81 MG ECTAB PO SCH (09:10)
--- NOTE | 2024-03-23 09:19 | XCELERA ---
[id number] \\[email or web address]\[id number]
--- NOTE | 2024-03-23 09:49 | Cardiology Consultation ---
Date of Consultation March 23, 2024 Assessment & Plan (1) Atrial fibrillation with rapid ventricular response: (2) Paroxysmal atrial fibrillation: Mr. Jaime is a 54 year old male with a history of Hypertension, Dyslipidemia, Type 2 Diabetes Mellitus, GERD, Osteoarthritis, and Glaucoma who presented to [facility] on 03/22/24 after sustaining a fall on 03/18/24 which resulted in a CHI/Concussion. Patient underwent CT scans of his Head, C-spine, and L-spine which were unremarkable. He was markedly hypertensive during his 1st ER visit on 03/22/24, had been off of his Lisinopril and Metformin leading up to presentation due to insurance issues -- so these were restarted. Patient was counseled on taking care of himself with regards to his concussion and he was discharged from the ER. After he went back home, he laid down to rest and immediately developed nausea and vomiting, admitting to 4 or 5 episodes of vomiting which prompted him to come back into the ER in the afternoon of 03/22/24. He was given Zofran for his N/V. His hypertension was treated with IV Hydralazine 10 mg x 2 doses. 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 Apparently an EKG was done that demonstrated A-Fib -- but it is not scanned into IT MOVES IT yet and I did not see this EKG tracing. Patient was placed on IV Cardizem bolus followed by an IV drip. Patient subsequently converted back to normal sinus rhythm earlier today. He was completely asymptomatic when he was in rapid A-Fib -- he denies any sensation of palpitations, tachy-palpitations, or heart racing. 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 He has not experienced any limiting cardiopulmonary symptoms. Patient has not experienced any angina pectoris despite having RVR and his high sensitivity troponin I levels are within normal limits at 11.1 and 13.7 pg/mL respectively. He has a normal H&H, his serum magnesium on admission was 1.8 mg/dL, it is up to 2.1 mg/dL today. Serum potassium level has been normal. He is hypercholesterolemic with a total cholesterol of 306 mg/dL with an LDL of 220 mg dL and an HDL of 70 mg/dL. It is concerning that he was completely asymptomatic with the atrial fibrillation as he may have had other episodes of A-Fib and not know it. His [id number] is 2 which corresponds to yearly stroke risk of 2.2%. Therefore long-term anticoagulation is indicated. Recommend the followin. Start Eliquis 5 mg b.i.d. for long-term anticoagulation. 2. Consider the addition of a low-dose beta-yanira vs a nondihydropyridine calcium channel yanira. (3) HTN (hypertension): Patient remains hypertensive but his blood pressure has improved since being here. 1. Resume Lisinopril 5 mg daily. 2. Consider the addition of a low-dose beta-yanira vs a nondihydropyridine calcium channel yanira. 3. Consider starting a diuretic. (4) Dyslipidemia: Patient is hypercholesterolemic with a total cholesterol of 306 mg/dL with an LDL of 220 mg dL and an HDL of 70 mg/dL. Total cholesterol:HDL ratio is 4.4. 1. Continue Atorvastatin 80 mg daily. 2. Continue Zetia 10 mg daily. Thank you for asking us to see this patient in consultation. He is stable from a cardiac standpoint for discharge to home. We can see the patient in follow-up in coming weeks following discharge from the hospital. History of Present Illness Reason for Consultation: -- Paroxysmal Atrial Fibrillation with RVR. Requesting Physician: Ed Nicole MD Attending Physician: Donovan Yung MD History of Present Illness Mr. Jaime is a 54 year old male with a history of Hypertension, Dyslipidemia, Type 2 Diabetes Mellitus, GERD, Osteoarthritis, and Glaucoma who presented to [facility] ER on 03/22/24 after sustaining a fall on 03/18/24 which resulted in a CHI/Concussion. Patient underwent CT scans of his Head, C-spine, and L-spine which were unremarkable. He was markedly hypertensive during his 1st ER visit on 03/22/24, had been off of his Lisinopril and Metformin leading up to pres entation due to insurance issues -- so these were restarted. Patient was counseled on taking care of himself with regards to his concussion and he was discharged from the ER. After he went back home, he laid down to rest and immediately developed nausea and vomiting, admitting to 4 or 5 episodes of vomiting which prompted him to come back into the ER in the afternoon of 03/22/24. He was given Zofran for his N/V. His hypertension was treated with IV Hydralazine 10 mg x 2 doses. 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 Apparently an EKG was done that demonstrated A- Fib -- but it is not scanned into IT MOVES IT yet and I did not see this EKG tracing. Patient was placed on IV Cardizem bolus followed by an IV drip. Patie nt subsequently converted back to normal sinus rhythm. He was completely asymptomatic when he was in rapid A-Fib -- he denies any sensation of palpitations, tachy-palpitations, or heart racing. 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 He has not experienced any limiting cardiopulmonary symptoms. He specifically denies any exertional chest pain, heaviness, tightness, pressure, or discomfort. He denies any exertional neck, jaw, back, or arm pain. He denies any shortness of breath, unusual dyspnea on exertion, orthopnea, or PND. He further denies any history of syncope or near-syncope. Patient denies any prior cardiac history or prior cardiac events. He denies any history of CAD, CHF, rheumatic fever, or cardiac arrhythmias. He has never had a stroke or mini stroke. His family history is remarkable for his mother dying at the age of 50 with a myocardial infarction. Allergies Allergy/AdvReac Type Severity Reaction Status Date / Time No Known Allergies Allergy Unverified 04/02/23 10:28 Home Medications Medication Instructions Recorded Confirmed Type aspirin 81 mg tablet,delayed 81 mg PO DAILY 05/15/18 04/02/23 History release atorvastatin 80 mg tablet 80 mg PO DAILY 05/15/18 04/02/23 History cholecalciferol (vitamin D3) 125 125 mcg PO DAILY #90 caps 12/24/22 04/02/23 Rx mcg (5,000 unit) capsule magnesium oxide 400 mg PO DAILY #90 caps 12/24/22 04/02/23 Rx lisinopril 2.5 mg tablet 5 mg (2 x 2.5 mg) PO DAILY #90 tabs 12/30/22 04/02/23 Rx metformin 500 mg tablet 500 mg PO BID #90 tabs 12/30/22 04/02/23 Rx ezetimibe 10 mg tablet (Zetia) 10 mg PO DAILY #30 tabs 01/05/23 04/02/23 Rx meloxicam 7.5 mg tablet 7.5 mg PO DAILY PRN 04/02/23 History lisinopril 5 mg tablet 5 mg PO DAILY #30 tabs 03/22/24 Rx metformin 500 mg tablet,extended 500 mg PO DAILY #30 tabs 03/22/24 Rx release 24 hr Patient History Surgical History History of shoulder surgery Family History Mother , D/T MD Myocardial infarction Brother Diabetes Father , Age 59 from prostate cancer Prostate cancer Sister , Age 29 from bone cancer Bone cancer Denies family history of Ovarian cancer Breast cancer Colorectal cancer Social History Smoking Status: Former smoker Tobacco Type: Cigarettes Second Hand Exposure: No; Do You Dip or Chew Tobacco: Yes; Hx Alcohol Use: Yes Alcohol type: beer Alcohol Intake Frequency: Monthly or Less Hx Substance Use: No Preferred Language: Polish Communication Ability: Effective Visual Impairment: No Limitations Hearing Ability: Normal [employer] Solution Architect Required: No Beliefs That Will Affect Care: None marital status: Current Living Situation: Alone current occupational status: employed 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 Physical Exam Physical Exam: Blood pressure 178/90, pulse 80 and regular. GENERAL: Patient in no acute distress. HEENT: EOM's intact. Facies symmetric. No perioral cyanosis. NECK: No JVD. JVP is not elevated. Carotid upstrokes are + 2 bilaterally without bruits. CHEST/LUNGS: Clear to auscultation throughout all lung dietz. No wheezes, rales, or crackles. CVS: S1 and S2 are regular without murmurs, gallops, or rubs. PMI is nonpa lpable. No lifts, heaves, or thrills. No abdominal aortic or renal bruits. ABDOMINAL EXAM: Bowel sounds are present. EXTREMITIES: No clubbing or cyanosis. No edema. Limbs are well perfused. NEUROLOGIC EXAM: Patient is awake, alert, and oriented. Pleasant and cooperative. Answers questions appropriately. Speech is clear. MANAGER COMPANY: -- Normal sinus rhythm at normal rates, occasional PAC's. ECHOCARDIOGRAM 03/23/24: -- Normal LV size, wall motion, and syst olic function. -- Borderline concentric LVH. -- LVEF 55% to 60%. -- No significant valvular abnormalities . Results & Data Vital Signs (Past 12 Hours) Vital Signs Temp Pulse Pulse Pulse Resp BP BP 03/23/24 08:00 80 03/23/24 08:00 03/23/24 07:38 36.5 C 65 18 178/90 H 03/23/24 04:30 79 178/94 H 03/23/24 04:10 83 03/23/24 03:45 36.6 C 77 19 195/88 H 03/23/24 02:26 36.9 C 98 H 20 03/23/24 02:03 108 H 18 03/23/24 02:00 189/93 H 03/23/24 01:27 108 H 18 03/23/24 01:14 186/86 H 03/23/24 01:05 109 H 03/23/24 00:33 122 H 15 03/23/24 00:15 159/102 H 03/22/24 23:45 104 H 18 162/100 H 03/22/24 23:45 108 H 19 162/100 H 03/22/24 23:36 113 H 206/115 H 03/22/24 23:28 154/107 H 03/22/24 22:45 116 H 23 189/111 H 03/22/24 22:30 113 H 15 184/100 H 03/22/24 22:22 115 H 03/22/24 22:15 171/82 H 03/22/24 21:57 123 H 22 03/22/24 21:45 137/97 BP Pulse Ox O2 Del Method 03/23/24 08:00 03/23/24 08:00 Room Air 03/23/24 07:38 95 Room Air 03/23/24 04:30 03/23/24 04:10 03/23/24 03:45 97 Room Air 03/23/24 02:26 182/94 H 97 Room Air 03/23/24 02:03 96 Room Air 03/23/24 02:00 03/23/24 01:27 95 Room Air 03/23/24 01:14 03/23/24 01:05 03/23/24 00:33 96 Room Air 03/23/24 00:15 03/22/24 23:45 98 Room Air 03/22/24 23:45 95 Room Air 03/22/24 23:36 93 Room Air 03/22/24 23:28 03/22/24 22:45 94 Room Air 03/22/24 22:30 96 Room Air 03/22/24 22:22 03/22/24 22:15 03/22/24 21:57 96 Room Air 03/22/24 21:45 Laboratory Results Laboratory Results - last 24 hr 03/22/24 03/22/24 03/22/24 18:46 19:14 20:25 WBC 4.85 RBC 4.62 L Hgb 15.2 Hct 41.8 L MCV 90.5 MCH 32.9 MCHC 36.4 H RDW Std Deviation 39.3 RDW Coeff of Noe 11.9 Plt Count 225 MPV 9.5 Immature Gran % (Auto) 0.4 Neut % (Auto) 72.0 Lymph % (Auto) 18.6 [place] % (Auto) 7.8 Eos % (Auto) 0.6 Baso % (Auto) 0.6 Neut # (Auto) 3.49 Lymph # (Auto) 0.90 L [place] # (Auto) 0.38 Eos # (Auto) 0.03 Baso # (Auto) 0.03 Immature Gran # (Auto) 0.02 Sodium 136 Potassium 4.5 Chloride 99 Carbon Dioxide 29 Anion Gap 8 BUN 6 Creatinine 0.82 Est Cr Clr Drug Dosing 121.7 eGFR 103.74 BUN/Creatinine Ratio 7.3 L Glucose 199 H POC Glucose Estimat Average Glucose Hemoglobin A1c Lactate 2.5 H* Calcium 9.5 Phosphorus Magnesium 1.8 Total Bilirubin 0.7 AST 31 ALT 28 Alkaline Phosphatase 48 Troponin I High Sens Total Protein 7.9 Albumin 4.6 Globulin 3.3 Albumin/Globulin Ratio 1.4 Triglycerides Cholesterol LDL Cholesterol, Calc VLDL Cholesterol, Calc HDL Cholesterol Cholesterol/HDL Ratio Lipase 31 TSH Urine Color Yellow Urine Appearance Clear Urine pH 6.5 Ur Specific [place] 1.005 Urine Protein Trace H Urine Glucose (UA) Trace H Urine Ketones Negative Urine Blood Negative Urine Nitrite Negative Urine Bilirubin Negative Urine Urobilinogen Negative Ur Leukocyte Esterase Negative Urine WBC (Auto) 0-5 Urine RBC (Auto) 0-2 U Hyaline Cast (Auto) 0-2 U Epithel Cells (Auto) 0-2 Urine Bacteria (Auto) None Seen Adenovirus (PCR) Not Detected B. pertussis DNA (PCR) Not Detected B.parapertussis DNA PCR Not Detected C. pneumoniae DNA (PCR) Not Detected Coronavirus OC43 (PCR) Not Detected Coronavirus HKU1 (PCR) Not Detected Coronavirus 229E (PCR) Not Detected SARS-CoV-2 (PCR) Not Detected Coronavirus NL63 (PCR) Not Detected Human Metapneumovir PCR Not Detected Influenza Type A (PCR) Not Detected Influenza Type B (PCR) Not Detected M. pneumoniae (PCR) Not Detected Parainfluenza 1 (PCR) Not Detected Parainfluenza 2 (PCR) Not Detected Parainfluenza 3 (PCR) Not Detected Parainfluenza 4 (PCR) Not Detected RSV (PCR) Not Detected Entero/Rhino (PCR) Not Detected 03/22/24 03/23/24 03/23/24 21:20 04:56 08:34 WBC 5.80 RBC 4.69 L Hgb 15.1 Hct 42.3 MCV 90.2 MCH 32.2 MCHC 35.7 RDW Std Deviation 39.7 RDW Coeff of Noe 12.1 Plt Count 210 MPV 9.8 Immature Gran % (Auto) 0.3 Neut % (Auto) 76.9 Lymph % (Auto) 10.3 [place] % (Auto) 11.7 Eos % (Auto) 0.3 Baso % (Auto) 0.5 Neut # (Auto) 4.45 Lymph # (Auto) 0.60 L [place] # (Auto) 0.68 H Eos # (Auto) 0.02 Baso # (Auto) 0.03 Immature Gran # (Auto) 0.02 Sodium 137 Potassium 4.2 Chloride 101 Carbon Dioxide 27 Anion Gap 9 BUN 7 Creatinine 0.79 Est Cr Clr Drug Dosing 126.3 eGFR 104.91 BUN/Creatinine Ratio 8.9 L Glucose 205 H POC Glucose 174 H Estimat Average Glucose Pending Hemoglobin A1c Pending Lactate 2.6 H* Calcium 8.9 Phosphorus 2.6 Magnesium 2.1 Total Bilirubin AST ALT Alkaline Phosphatase Troponin I High Sens 11.1 13.7 Total Protein Albumin 4.0 Globulin Albumin/Globulin Ratio Triglycerides 81 Cholesterol 306 H LDL Cholesterol, Calc 220 VLDL Cholesterol, Calc 16 HDL Cholesterol 70 Cholesterol/HDL Ratio 4.4 Lipase TSH 1.450 Urine Color Urine Appearance Urine pH Ur Specific [place] Urine Protein Urine Glucose (UA) Urine Ketones Urine Blood Urine Nitrite Urine Bilirubin Urine Urobilinogen Ur Leukocyte Esterase Urine WBC (Auto) Urine RBC (Auto) U Hyaline Cast (Auto) U Epithel Cells (Auto) Urine Bacteria (Auto) Adenovirus (PCR) B. pertussis DNA (PCR) B.parapertussis DNA PCR C. pneumoniae DNA (PCR) Coronavirus OC43 (PCR) Coronavirus HKU1 (PCR) Coronavirus 229E (PCR) SARS-CoV-2 (PCR) Coronavirus NL63 (PCR) Human Metapneumovir PCR Influenza Type A (PCR) Influenza Type B (PCR) M. pneumoniae (PCR) Parainfluenza 1 (PCR) Parainfluenza 2 (PCR) Parainfluenza 3 (PCR) Parainfluenza 4 (PCR) RSV (PCR) Entero/Rhino (PCR) Diagnostic Findings Cervical Spine CT 03/22/24 10:28 CT OF THE CERVICAL SPINE WITHOUT CONTRAST CLINICAL HISTORY: Fall down steps on Wednesday, pain, trauma COMPARISON STUDY: No previous studies for comparison. TECHNIQUE: Helical axial images of the cervical spine were obtained without IV contrast. Sagittal and coronal reconstructions were viewed. Automated exposure control was utilized for the study. A dose lowering technique was utilized adhering to the principles of ALARA. FINDINGS: Alignment of the cervical spine is anatomic. Vertebral body heights are maintained. No acute cervical spine fracture or subluxation is present. There is no prevertebral edema. Facet joints are intact. There is mild to moderate multilevel disc space narrowing, endplate osteophytosis and facet arthrosis within the cervical spine. IMPRESSION: No acute cervical spine fracture or subluxation. ACT 112: Negative or not required by law. Electronically signed by: Micah Hull M.D. 03/22/2024 11:48 AM Chest X-Ray 03/22/24 10:28 XR chest 1V portable CLINICAL HISTORY: Fall down steps on nikhil, trauma COMPARISON STUDY: No previous studies for comparison. FINDINGS: Lung volumes are normal. Lungs are clear. There is no pneumothorax or pleural effusion. The heart is mildly enlarged. Mediastinal contours are normal. There is no evidence for pulmonary edema. IMPRESSION: No acute cardiopulmonary findings. ACT 112: Negative or not required by law. Electronically signed by: Micah Hull M.D. 03/22/2024 11:[address] 03/22/24 10:28 CT OF THE HEAD WITHOUT CONTRAST CLINICAL HISTORY: Fall down steps on wednesday, pain, trauma COMPARISON STUDY: No previous studies for comparison. TECHNIQUE: Helical axial images of the head were obtained without IV contrast. Automated exposure control was utilized for the study. A dose lowering technique was utilized adhering to the principles of ALARA. FINDINGS: No acute intracranial hemorrhage, midline shift or mass effect is present. The ventricular system is unremarkable. The basal cisterns are patent. No extra-axial collections are present. There are no findings to suggest acute dural sinus thrombosis or acute territorial infarct. There are no calvarial fractures. There is moderate polypoid mucosal thickening of the right maxillary sinus. IMPRESSION: 1. No acute intracranial findings. 2. No calvarial fractures. 3. Moderate polypoid mucosal thickening of the right maxillary sinus. ACT 112: Negative or not required by law. Electronically signed by: Micah Hull M.D. 03/22/2024 11:[address] 03/22/24 10:28 CT lumbar spine wo con CLINICAL HISTORY: Fall down steps on wednesday, pain, trauma COMPARISON STUDY: No previous studies for comparison. FINDINGS: Alignment of the lumbar spine is anatomic. Vertebral body heights are maintained. There are no fractures within the lumbar spine. There are no suspicious osseous lesions. There is a bone island within the left aspect of the L4 vertebral body. Central canal and neural foramen are suboptimally assessed given CT technique. There is mild disc space narrowing with osteophytosis at L5- S1. There is moderate multilevel facet arthrosis. Paravertebral soft tissues are unremarkable. IMPRESSION: No lumbar spine fracture or subluxation. Medications Administered Medication List Aspirin (Aspirin 81 Mg Ectab) 81 mg PO DAILY SIMRAN Stop: 04/22/24 08:59 Last Admin: 03/23/24 09:10 Dose: 81 mg Documented By: TOAN Atorvastatin Calcium (Atorvastatin 40 Mg Tab) 80 mg PO DAILY SIMRAN Stop: 04/22/24 08:59 Last Admin: 03/23/24 09:09 Dose: 80 mg Documented By: REMIN Diltiazem HCl (Diltiazem Hcl 30 Mg Tab) 30 mg PO TID SIMRAN Stop: 04/22/24 08:59 Last Admin: 03/23/24 09:10 Dose: 30 mg Documented By: TOAN Ezetimibe (Ezetimibe 10 Mg Tab) 10 mg PO DAILY SIMRAN Stop: 04/22/24 08:59 Last Admin: 03/23/24 09:09 Dose: 10 mg Documented By: TOAN Heparin Sodium (Porcine) (Heparin Sod 5,000 Unit/0.5 Ml Vial) 5,000 units SQ Q12 SIMRAN Stop: 04/22/24 08:59 Last Admin: 03/23/24 09:07 Dose: 5,000 units Documented By: TOAN Insulin Aspart (Insulin Aspart Per Unit Charge) 0 units SC ACHS SIMRAN Stop: 04/22/24 07:29 Last Admin: 03/23/24 09:06 Dose: 3 units Documented By: TOAN Co-signed By: PK Magnesium Oxide (Magnesium Oxide 400 Mg Tab) 400 mg PO DAILY SIMRAN Stop: 04/22/24 08:59 Last Admin: 03/23/24 09:10 Dose: 400 mg Documented By: TOAN Vitamin D (Cholecalciferol 125 Mcg (5,000 Units) Tab) 125 mcg PO DAILY SIMRAN Stop: 04/22/24 08:59 Last Admin: 03/23/24 09:10 Dose: 125 mcg Documented By: TOAN Discontinued Medications Diltiazem HCl (Diltiazem Hcl 5 Mg/Ml 5 Ml Vial) 20 mg IV NOW STA Stop: 03/22/24 21:10 Last Admin: 03/22/24 21:20 Dose: 20 mg Documented By: Co-signed By: THAD Diltiazem HCl (Diltiazem Hcl 30 Mg Tab) 30 mg PO NOW ONE Stop: 03/22/24 22:54 Last Admin: 03/22/24 23:38 Dose: 30 mg Documented By: Diltiazem HCl (Diltiazem Hcl 30 Mg Tab) 30 mg PO NOW ONE Stop: 03/23/24 01:36 Last Admin: 03/23/24 02:06 Dose: 30 mg Documented By: Hydralazine HCl (Hydralazine Hcl 20 Mg/Ml Vial) 10 mg IV NOW STA Stop: 03/22/24 19:17 Last Admin: 03/22/24 19:21 Dose: 10 mg Documented By: Hydralazine HCl (Hydralazine Hcl 20 Mg/Ml Vial) 10 mg IV NOW STA Stop: 03/22/24 19:53 Last Admin: 03/22/24 20:17 Dose: 10 mg Documented By: Diltiazem HCl 125 mg/ Dextrose 125 mls @ 5 mls/hr IV .Q24H SIMRAN; Protocol Stop: 03/23/24 03:06 Last Admin: 03/22/24 21:22 Dose: 5 mg/hr, 5 mls/hr Documented By: Co-signed By: DEBORAH Sodium Chloride (Nss) 1,000 mls @ 999 mls/hr IV .Q1H1M ONE Stop: 03/22/24 23:05 Last Infusion: 03/22/24 23:35 Dose: Infused Documented By: Admin: 03/22/24 22:22 Dose: 999 mls/hr Documented By: Magnesium Sulfate/Dextrose (Magnesium Sulfate / D5w) 1 gm in 100 mls @ 50 mls/hr IV Q2H SIMRAN Stop: 03/23/24 02:59 Last Infusion: 03/23/24 03:26 Dose: Infused Documented By: Admin: 03/23/24 01:12 Dose: 50 mls/hr Documented By: Infusion: 03/23/24 01:12 Dose: Infused Documented By: Admin: 03/22/24 23:32 Dose: 50 mls/hr Documented By: JR Arguelles (Stat Iv Infusion Titration Per Protocol) 1 each N/A NOW STA Stop: 03/22/24 21:10 Last Admin: 03/22/24 23:35 Dose: 1 each Documented By: JR Arguelles (Cardizem Gtt - Stop Order) 1 each N/A 0306 ONE Stop: 03/23/24 03:07 Last Admin: 03/23/24 03:06 Dose: 1 each Documented By: STEVENSON Ondansetron HCl (Ondansetron Inj 2 Mg/Ml 2 Ml Vial) 4 mg IV NOW STA Stop: 03/22/24 18:33 Last Admin: 03/22/24 18:46 Dose: 4 mg Documented By: SARAH PG Care Time/CCT Total # of Minutes Spent Total Time Spent with Patient: Total time spent is greater than 50% in coordination of care (as documented) at patient's floor/unit and/or counseling patient:40 [place] [address] IN/OBS CONSULT LVL 4,60M Patient Type New History Detailed Exam Detailed Medical Decision Making Moderate Complexity Diagnoses Atrial fibrillation with rapid ventricular response I48.91 Paroxysmal atrial fibrillation I48.0 Primary hypertension I10 Hypertension type: primary hypertension Dyslipidemia E78.5 Time Spent (min) 60 (3) HTN (hypertension) Hypertension type: primary hypertension Qualified Code(s): I10 - Essential (primary) hypertension
[2024-03-23 11:03] LABS: Estimated Average Glucose 143 mg/dl; Hemoglobin A1C 6.6 % (4.5-5.6)
--- NOTE | 2024-03-23 12:46 | Electrocardiogram Report ---
Test Reason : Blood Pressure : */* mmHG Vent. Rate : 81 BPM Atrial Rate : 81 BPM P-R Int : 200 ms QRS Dur : 116 ms QT Int : 358 ms P-R-T Axes : 33 29 32 degrees QTcB Int : 415 ms Sinus rhythm with Premature atrial complexes Otherwise normal ECG When compared with ECG of 15-May-2018 03:09, Premature atrial complexes are now Present IA interval has decreased Confirmed by Donovan Yung ([id number]) on 03/23/2024 12:46:28 PM Referred By: REFERRED SELF Confirmed By: Donovan Yung
--- NOTE | 2024-03-23 12:50 | Electrocardiogram Report ---
Test Reason : Blood Pressure : */* mmHG Vent. Rate : 136 BPM Atrial Rate : * BPM P-R Int : * ms QRS Dur : 92 ms QT Int : 258 ms P-R-T Axes : * 19 -2 degrees QTcB Int : 388 ms Atrial fibrillation with rapid ventricular response Abnormal ECG When compared with ECG of 22-Mar-2024 18:41, (unconfirmed) Significant changes have occurred Confirmed by Donovan Yung ([id number]) on 03/23/2024 12:49:50 PM Referred By: REFERRED SELF Confirmed By: Donovan Yung
--- NOTE | 2024-03-23 12:54 | Electrocardiogram Report ---
Test Reason : Blood Pressure : */* mmHG Vent. Rate : 100 BPM Atrial Rate : 100 BPM P-R Int : 232 ms QRS Dur : 94 ms QT Int : 354 ms P-R-T Axes : 39 17 19 degrees QTcB Int : 456 ms Sinus rhythm with 1st degree A-V block with Premature supraventricular complexes Otherwise normal ECG When compared with ECG of 22-Mar-2024 21:06, (unconfirmed) Sinus rhythm has replaced Atrial fibrillation Confirmed by Donovan Yung ([id number]) on 03/23/2024 12:54:35 PM Referred By: REFERRED SELF Confirmed By: Donovan Yung
[2024-03-23] MEDS: lisinopril 10 MG TAB PO ONE (13:37)
--- NOTE | 2024-03-23 15:49 | Electrocardiogram Report ---
Test Reason : Blood Pressure : */* mmHG Vent. Rate : 79 BPM Atrial Rate : 79 BPM P-R Int : 218 ms QRS Dur : 96 ms QT Int : 388 ms P-R-T Axes : 20 14 21 degrees QTcB Int : 444 ms Sinus rhythm with 1st degree A-V block with Premature supraventricular complexes Otherwise normal ECG When compared with ECG of 23-Mar-2024 01:16, No significant change was found Confirmed by Donovan Yung ([id number]) on 03/23/2024 3:48:29 PM Referred By: REFERRED SELF Confirmed By: Donovan Yung
--- NOTE | 2024-03-23 19:03 | Hospitalist Progress Note ---
Date of Service March 23, 2024 Assessment & Plan (1) Paroxysmal atrial fibrillation: Plan: had such while in the ER when in a.fib had RVR fortunately converted back to NSR has been in NSR since then considerable ectopy (PACs) noted on tele appreciate cardiology assistance CHADS-VASc score is 2 thus Eliquis was recommended change diltiazem to metoprolol xl - latter will be better for BP control (2) HTN (hypertension): Plan: severely uncontrolled increase lisinopril to 10mg/day (from 5mg/day) is currently on IR dilt 30mg TID but will change this to metoprolol xl follow BPs (3) Hypertensive urgency: Plan: see #2 above (4) Closed head injury: Plan: hit his head on steps several days ago had had headache, N/V - likely concussive symptoms neuro exam wnl CT head x 2 negative for acute findings CT c-spine negative for fracture (5) Concussion: Plan: head injury (hit head on steps) see above (6) Dyslipidemia: Plan: cont statin cont zetia compliance with meds?? LDL 201 in 2022 now 220 would leave meds as is - encourage compliance - f/u with PCP for this (7) Type 2 diabetes mellitus: Plan: a1c 6.6% typically on metformin at home cont such upon d/c Plan if BPs are reasonable overnight (160s/150s) can likely d/c home tomorrow with BP meds, Eliquis, etc. Admission and Anticipated Discharge Date Admission Date: March 22, 2024 Subjective patient denies any complaints no headache no diplopia or visual change no ataxia no dizziness no cp or shortness of breath he feels well he mentioned he was sick over the iday - had fevers/chills for about 3 days then symptoms fully resolved tele overnight - no further a.fib Review of Systems Review of Systems: cv - no orthopnea, no edema pulm - no dyspnea or HAYNES GI - no further N/V or abd pain Physical Exam Physical Exam: gen - NAD, looks well eyes - EOMI, no nystagmus, PERRL neck - no JVD mouth - MMM heart - irregular (extra beats), s1 s2, no murmur lungs - CTA b/l abd - soft NT ND BS+ ext - no edema, pulses 2+ b/l neuro - finger/nose/finger maneuver w/o ataxia Results & Data Results & Data Vital Signs (Past 12 Hours) Vital Signs Temp Pulse Pulse Resp BP BP Pulse Ox 03/23/24 15:30 36.6 C 76 18 181/43 H 98 03/23/24 14:17 82 03/23/24 11:27 36.7 C 71 18 209/88 H 197/91 H 97 03/23/24 08:00 80 03/23/24 08:00 03/23/24 07:38 36.5 C 65 18 178/90 H 95 O2 Del Method 03/23/24 15:30 Room Air 03/23/24 14:17 03/23/24 11:27 Room Air 03/23/24 08:00 03/23/24 08:00 Room Air 03/23/24 07:38 Room Air Laboratory Results Laboratory Results - last 24 hr 03/23/24 03/23/24 03/23/24 04:56 08:34 12:19 POC Glucose 174 H 141 H Estimat Average Glucose 143 Hemoglobin A1c 6.6 H 03/23/24 16:52 POC Glucose 160 H Estimat Average Glucose Hemoglobin A1c PG Care Time/CCT Total # of Minutes Spent Total Time Spent with Patient: Total time spent is greater than 50% in coordination of care (as documented) at patient's floor/unit and/or counseling patient: Coding Level of Care Code 89028 SUB INP/OBS CARE 2/35MIN Diagnoses Paroxysmal atrial fibrillation I48.0 Primary hypertension I10 Hypertension type: primary hypertension Hypertensive urgency I16.0 Closed head injury S09.90XA Concussion S06.0XAA Dyslipidemia E78.5 Type 2 diabetes mellitus E11.9 Diabetes mellitus complication status: without complication (2) HTN (hypertension) Hypertension type: primary hypertension Qualified Code(s): I10 - Essential (primary) hypertension (7) Type 2 diabetes mellitus Diabetes mellitus complication status: without complication
[2024-03-24] MEDS: lisinopril 10 MG TAB PO SCH (08:52)
[2024-03-24] MEDS: METOPROLOL SUCC 25MG EXT REL TAB PO SCH (09:00)
[2024-03-24 09:17] LABS: Basophils # (auto) 0.03 K/uL (0.00-0.20); Basophils % (auto) 0.6 %; Eosinophils # (auto) 0.07 K/uL (0.00-0.50); Eosinophils % (auto) 1.4 %; Hematocrit (blood only) 42.9 % (42.0-52.0); Hemoglobin 15.2 g/dl (14.0-18.0); Immature Granulocytes # (auto) 0.02 K/uL (0.01-0.20); Immature Granulocytes % (auto) 0.4 %; Lymphocytes # (auto) 0.99 K/uL (1.20-3.40); Lymphocytes % (auto) 20.4 %; Mean Corpuscular Hemoglobin 32.3 pg (25.0-34.0); Mean Corpuscular Hgb Conc 35.4 g/dL (32.0-36.0); Mean Corpuscular Volume 91.3 fL (80.0-100.0); Mean Platelet Volume 10.3 fL (9.4-12.4); Monocytes # (auto) 0.66 K/uL (0.11-0.59); Monocytes % (auto) 13.6 %; Neutrophils # (auto) 3.09 K/uL (1.40-6.50); Neutrophils % (auto) 63.6 %; Platelet Count 227 K/uL (130-400); RDW Coefficient of Variation 11.8 % (11.5-14.5); RDW Standard Deviation 39.7 fL (36.4-46.3); White Blood Count 4.86 K/ul (4.8-10.8)
[2024-03-24 09:39] LABS: Albumin Level 4.2 gm/dl (3.4-5.0); BUN Creatinine Ratio 13.9 (10-20); Calcium 9.1 mg/dl (8.6-10.3); Creatinine Clr Calc Pharmacy 126.3 ml/min; Phosphorus 2.8 mg/dl (2.5-4.9); Potassium 3.8 mmol/L (3.5-5.1)
[2024-03-24] MEDS: lisinopril 10 MG TAB PO STA (18:19)
--- NOTE | 2024-03-24 20:14 | Hospitalist Progress Note ---
Date of Service March 24, 2024 Assessment & Plan (1) Paroxysmal atrial fibrillation: Plan: had such while in the ER shortly after arrival to [facility] when in a.fib had RVR fortunately converted back to NSR spontaneously has been in NSR since then considerable ectopy (PACs) noted on tele appreciate cardiology assistance CHADS-VASc score is 2 thus Eliquis was recommended changed diltiazem to metoprolol xl - latter will be better for BP control will have patient f/u with cardiology post-d/c (2) HTN (hypertension): Plan: severely uncontrolled increase lisinopril to 20mg/day cont metoprolol xl 25mg daily if still high tomorrow then increase metoprolol to 50mg/day follow BPs I would be comfortable with hospital d/c if SBPs are 150s/160s (3) Hypertensive urgency: Plan: see #2 above improving albeit slowly (4) Closed head injury: Plan: hit his head on steps several days ago had had headache, N/V - likely concussive symptoms neuro exam wnl CT head x 2 negative for acute findings CT c-spine negative for fracture (5) Concussion: Plan: head injury (hit head on steps) see above concussive symptoms resolved no further headache, nausea, emesis, etc. denies any current neuro symptoms (6) Dyslipidemia: Plan: cont statin cont zetia compliance with meds?? LDL 201 in 2022 now 220 would leave meds as is - encourage compliance - f/u with PCP for this (7) Type 2 diabetes mellitus: Plan: a1c 6.6% typically on metformin at home cont such upon d/c Plan if BPs are reasonable overnight (160s/150s) can likely d/c home tomorrow with BP meds, Eliquis, etc. Admission and Anticipated Discharge Date Admission Date: March 22, 2024 Subjective patient w/o any specific complaints wants to go home tele overnight w/o a.fib denies headache, dizziness, motor or sensory symptoms of arms/legs denies cp, dyspnea or HAYNES Review of Systems Review of Systems: CV - no edema, no orthopnea pulm - no dyspnea or cough Physical Exam Physical Exam: gen - NAD, looks well but seems anxious neck - no JVD mouth - MMM heart - irregular (extra beats), s1 s2, no murmur lungs - CTA b/l abd - soft NT ND BS+ ext - no edema, pulses 2+ b/l Results & Data Results & Data Vital Signs (Past 12 Hours) Vital Signs Temp Pulse Pulse Resp BP BP Pulse Ox 03/24/24 19:30 36.9 C 70 18 189/79 H 97 03/24/24 17:04 178/91 H 187/110 H 03/24/24 15:18 36.6 C 65 18 165/87 H 173/100 H 98 03/24/24 14:37 81 03/24/24 12:05 36.7 C 80 16 148/97 H 96 03/24/24 10:01 O2 Del Method 03/24/24 19:30 Room Air 03/24/24 17:04 03/24/24 15:18 Room Air 03/24/24 14:37 03/24/24 12:05 Room Air 03/24/24 10:01 Room Air Laboratory Results Laboratory Results - last 24 hr 03/23/24 03/24/24 03/24/24 20:19 07:50 08:08 WBC 4.86 RBC 4.70 Hgb 15.2 Hct 42.9 MCV 91.3 MCH 32.3 MCHC 35.4 RDW Std Deviation 39.7 RDW Coeff of Noe 11.8 Plt Count 227 MPV 10.3 Immature Gran % (Auto) 0.4 Neut % (Auto) 63.6 Lymph % (Auto) 20.4 [place] % (Auto) 13.6 Eos % (Auto) 1.4 Baso % (Auto) 0.6 Neut # (Auto) 3.09 Lymph # (Auto) 0.99 L [place] # (Auto) 0.66 H Eos # (Auto) 0.07 Baso # (Auto) 0.03 Immature Gran # (Auto) 0.02 Sodium 134 L Potassium 3.8 Chloride 99 Carbon Dioxide 28 Anion Gap 7 BUN 11 Creatinine 0.79 Est Cr Clr Drug Dosing 126.3 eGFR 104.91 BUN/Creatinine Ratio 13.9 Glucose 139 H POC Glucose 156 H 148 H Calcium 9.1 Phosphorus 2.8 Magnesium 2.0 Albumin 4.2 03/24/24 03/24/24 12:06 17:03 WBC RBC Hgb Hct MCV MCH MCHC RDW Std Deviation RDW Coeff of Noe Plt Count MPV Immature Gran % (Auto) Neut % (Auto) Lymph % (Auto) [place] % (Auto) Eos % (Auto) Baso % (Auto) Neut # (Auto) Lymph # (Auto) [place] # (Auto) Eos # (Auto) Baso # (Auto) Immature Gran # (Auto) Sodium Potassium Chloride Carbon Dioxide Anion Gap BUN Creatinine Est Cr Clr Drug Dosing eGFR BUN/Creatinine Ratio Glucose POC Glucose 131 H 182 H Calcium Phosphorus Magnesium Albumin PG Care Time/CCT Total # of Minutes Spent Total Time Spent with Patient: Total time spent is greater than 50% in coordination of care (as documented) at patient's floor/unit and/or counseling patient: Coding Level of Care Code 62777 SUB INP/OBS CARE 2/35MIN Diagnoses Paroxysmal atrial fibrillation I48.0 Primary hypertension I10 Hypertension type: primary hypertension Hypertensive urgency I16.0 Closed head injury S09.90XA Concussion S06.0XAA Dyslipidemia E78.5 Type 2 diabetes mellitus E11.9 Diabetes mellitus complication status: without complication (2) HTN (hypertension) Hypertension type: primary hypertension Qualified Code(s): I10 - Essential (primary) hypertension (7) Type 2 diabetes mellitus Diabetes mellitus complication status: without complication
[2024-03-25 03:10] VITALS: TEMP 97.5
[2024-03-25 06:29] LABS: Basophils # (auto) 0.03 K/uL (0.00-0.20); Basophils % (auto) 0.6 %; Eosinophils # (auto) 0.08 K/uL (0.00-0.50); Eosinophils % (auto) 1.5 %; Hematocrit (blood only) 41.1 % (42.0-52.0); Hemoglobin 14.7 g/dl (14.0-18.0); Immature Granulocytes # (auto) 0.01 K/uL (0.01-0.20); Immature Granulocytes % (auto) 0.2 %; Lymphocytes # (auto) 1.18 K/uL (1.20-3.40); Lymphocytes % (auto) 22.3 %; Mean Corpuscular Hemoglobin 32.5 pg (25.0-34.0); Mean Corpuscular Hgb Conc 35.8 g/dL (32.0-36.0); Mean Corpuscular Volume 90.9 fL (80.0-100.0); Mean Platelet Volume 10.1 fL (9.4-12.4); Monocytes # (auto) 0.55 K/uL (0.11-0.59); Monocytes % (auto) 10.4 %; Neutrophils # (auto) 3.45 K/uL (1.40-6.50); Platelet Count 212 K/uL (130-400); RDW Coefficient of Variation 11.7 % (11.5-14.5); Red Blood Count 4.52 M/uL (4.70-6.10)
[2024-03-25 06:49] LABS: Albumin Level 4.1 gm/dl (3.4-5.0); BUN Creatinine Ratio 18.8 (10-20); Calcium 9.1 mg/dl (8.6-10.3); Creatinine Clr Calc Pharmacy 117.4 ml/min; Phosphorus 3.3 mg/dl (2.5-4.9); Potassium 3.9 mmol/L (3.5-5.1)
[2024-03-25 08:06] VITALS: BP 155/92; RESP 20; O2SAT 97
[2024-03-25] MEDS: lisinopril 20 MG TAB PO SCH (08:58)
--- NOTE | 2024-03-25 10:19 | Discharge Summary ---
Discharge Summary Date of Service March 25, 2024 Principal Dx & Hospital Course #1 = Principal Diagnosis (1) Paroxysmal atrial fibrillation: had such while in the ER shortly after arrival to [facility] when in a.fib had RVR fortunately converted back to NSR spontaneously has been in NSR since then considerable ectopy (PACs) noted on tele appreciate cardiology assistance CHADS-VASc score is 2 thus Eliquis was recommended changed diltiazem to metoprolol xl - latter will be better for BP control will have patient f/u with cardiology post-d/c (2) HTN (hypertension): severely uncontrolled increase lisinopril to 20mg/day cont metoprolol xl 25mg daily if still high tomorrow then increase metoprolol to 50mg/day follow BPs I would be comfortable with hospital d/c if SBPs are 150s/160s (3) Hypertensive urgency: see #2 above improving albeit slowly (4) Closed head injury: hit his head on steps several days ago had had headache, N/V - likely concussive symptoms neuro exam wnl CT head x 2 negative for acute findings CT c-spine negative for fracture (5) Concussion: head injury (hit head on steps) see above concussive symptoms resolved no further headache, nausea, emesis, etc. denies any current neuro symptoms (6) Dyslipidemia: cont statin cont zetia compliance with meds?? LDL 201 in 2022 now 220 would leave meds as is - encourage compliance - f/u with PCP for this (7) Type 2 diabetes mellitus: a1c 6.6% typically on metformin at home cont such upon d/c Plan if BPs are reasonable overnight (160s/150s) can likely d/c home tomorrow with BP meds, Eliquis, etc. Admission HPI Per Admitting Provider The patient is a 54-year-old male with a past medical history including GERD, dyslipidemia, glaucoma, diabetes mellitus type 2, osteoarthritis, and low magnesium. He presents to the emergency department symptoms as noted above. When he developed atrial fibrillation with RVR after receiving IV hydralazine, he was started on Cardizem drip by the ED, and then referred to the hospitalist service for evaluation for admission Discharge Exam gen - NAD, looks well but seems anxious neck - no JVD mouth - MMM heart - irregular (extra beats), s1 s2, no murmur lungs - CTA b/l abd - soft NT ND BS+ ext - no edema, pulses 2+ b/l Discharge Plan Discharge Items Patient Disposition: Home - Self-Care Reason For Visit: ATRIAL FIBRILLATION Discharge Diagnosis: 1. atrial fibrillation - resolved 2. uncontrolled high blood pressure - improving 3. type 2 diabetes - hemoglobin a1c 6.6% 4. high cholesterol 5. recent head injury with concussion 6. headache, nausea, vomiting - resolved; these symptoms were due to #5 Activity: As commented below Activity Comment: light activities for a few days, then gradually resume normal activity Exercise/Sports: Gradually increase as tolerated Driving/Machine Use: Resume 1 day after discharge Non-emergency contact: Primary Care Provider and Mason Foreman/Superintendant Call non-emergency contact if: you have any medication questions Follow-up/Referrals: Uli Bell PA-C [Physician Fruit Packer] - (2 weeks - for follow-up of a.fib) Cira Moseley DO [Primary Care Provider] - (within 1 week) Diet: Carb Consistent or DM2 and Heart Healthy Addtl Attending Provider Instructions: Mr Jaime, You were hospitalized for new onset atrial fibrillation ("a.fib" for short) as well as uncontrolled high blood pressure. In addition, you had been having headache, nausea, and vomiting due to your recent head injury with concussion. Fortunately your a.fib was short-lived. Ultimately your heart went back to normal rhythm and stayed in normal rhythm for the rest of your stay. You were seen by [facility]iology who recommended Eliquis blood thinner as well as metoprolol. Eliquis reduces the risk of stroke that is associated with a.fib (see handouts on a.fib, stroke, and Eliquis). In addition, we made several adjustments to your blood pressure medicines. Your blood pressures are improving nicely. Your initial systolic blood pressure was well over 200 upon arrival. Now it is 150s. Recommendations - 1. for high blood pressure take - * increased dose of lisinopril - 20mg once daily each morning * metoprolol succinate 25mg once daily each morning * check your blood pressure once or twice daily and write these numbers down in a notebook; plan to show them to your family doctor and to the material handler 2. to reduce the risk of stroke from a.fib take - * Eliquis blood thinner - 5mg twice daily every day * see handout on Eliquis * the biggest risk with Eliquis is bleeding * it increases the risk of bleeding from cuts on your skin, nose bleeding, bleeding from the GI tract, etc. 3. due to Eliquis use please - * stop aspirin * stop meloxicam * stop hjpd-ktz-emgunrh motrin, ibuprofen, naprosyn, aleve * it is OK to take reex-wod-aiibert tylenol for aches/pains/fever * avoid all forms of alcohol * when shaving please use an electric shaver rather than a traditional razor blade like Altagracia or Gilette; using an electric shaver reduces the risk of cuts and bleeding 4. resume metformin 500mg once daily with a meal for your diabetes 5. for high cholesterol please resume your atorvastatin and your ezetimibe; take each every day 6. be sure to bring the coupons to the pharmacy for the Eliquis to take advantage of the free month and reduced cost of future refills 7. with respect to your recent head injury - hopefully your concussion symptoms are fully resolved. However, if you get recurrent headaches, nausea, vomiting, visual disturbance, balance problems, etc - please seek medical attention Follow-up - see separate section Return to [facility] if - * you have worsening headaches * you have worsening shortness of breath * you have chest pains * you have any concerns about your blood pressure (your systolic blood pressure, the top number, is consistently over 200, etc) * you have concerns about bleeding due to the Eliquis * any other concerns It was our pleasure to care for you! -Dr Nicole Pending Studies at Discharge: No Stand-Alone Forms: My [facility], Smoking Cessation Medications and DC Order Prescriptions: New Eliquis 5 mg tablet 5 mg PO BID Qty: 60 5RF metoprolol succinate 25 mg Tablet Extended Release 24 Hr 25 mg PO QAM Qty: 30 0RF Continued cholecalciferol (vitamin D3) 125 mcg (5,000 unit) capsule 125 mcg PO DAILY Qty: 90 3RF magnesium oxide 400 mg magnesium capsule 400 mg PO DAILY Qty: 90 3RF atorvastatin 80 mg tablet 80 mg PO DAILY Qty: 30 0RF ezetimibe [Zetia] 10 mg tablet 10 mg PO DAILY Qty: 30 0RF Changed metformin 500 mg tablet 500 mg PO DAILY Qty: 30 3RF Rx Instructions: take with a meal lisinopril 20 mg tablet 20 mg PO DAILY Qty: 30 0RF Discontinued meloxicam 7.5 mg tablet 7.5 mg PO DAILY PRN aspirin 81 mg Tablet,Delayed Release (Dr/Ec) 81 mg PO DAILY lisinopril 5 mg tablet 5 mg PO DAILY Qty: 30 0RF metformin 500 mg tablet extended release 24 hr 500 mg PO DAILY Qty: 30 0RF Rx Instructions: To be taken near dinner time Discharge Orders: Discharge Order (Routine); Ordered 03/25/24 Ordered By: Ed Bowers/Other Patient Handouts: Apixaban Oral Tablet, Managing Type 2 Diabetes, AFib Preventing Stroke, AFib Admission Data Admit Date/Time: 03/24/24 20:12 Attending Provider: Ed Nicole Admit Provider: Ed Nicole Primary Care Provider: Cira Moseley Other Providers: Micah Portillo; Kurtis Potts Hospital Stay Data Consultations 03/22/24 21:52 ED Decision to Admit Stat 03/23/24 00:43 Consult Cardiology Routine Diagnostic Imagining Performed 03/22/24 19:16 CT head/brain wo con Stat Pending Results Patient Have Any Pending Studies at Discharge: No Discharge Instructions Given to Patient (Per Discharging Provider) Mr Jaime, You were hospitalized for new onset atrial fibrillation ("a.fib" for short) as well as uncontrolled high blood pressure. In addition, you had been having headache, nausea, and vomiting due to your recent head injury with concussion. Fortunately your a.fib was short-lived. Ultimately your heart went back to normal rhythm and stayed in normal rhythm for the rest of your stay. You were seen by [facility]iology who recommended Eliquis blood thinner as well as metoprolol. Eliquis reduces the risk of stroke that is associated with a.fib (see handouts on a.fib, stroke, and Eliquis). In addition, we made several adjustments to your blood pressure medicines. Your blood pressures are improving nicely. Your initial systolic blood pressure was well over 200 upon arrival. Now it is 150s. Recommendations - 1. for high blood pressure take - * increased dose of lisinopril - 20mg once daily each morning * metoprolol succinate 25mg once daily each morning * check your blood pressure once or twice daily and write these numbers down in a notebook; plan to show them to your family doctor and to the material handler 2. to reduce the risk of stroke from a.fib take - * Eliquis blood thinner - 5mg twice daily every day * see handout on Eliquis * the biggest risk with Eliquis is bleeding * it increases the risk of bleeding from cuts on your skin, nose bleeding, bleeding from the GI tract, etc. 3. due to Eliquis use please - * stop aspirin * stop meloxicam * stop ydli-yjl-flukuuh motrin, ibuprofen, naprosyn, aleve * it is OK to take [id number]-qkrhqkk tylenol for aches/pains/fever * avoid all forms of alcohol * when shaving please use an electric shaver rather than a traditional razor blade like Bic or Ciriloette; using an electric shaver reduces the risk of cuts and bleeding 4. resume metformin 500mg once daily with a meal for your diabetes 5. for high cholesterol please resume your atorvastatin and your ezetimibe; take each every day 6. be sure to bring the coupons to the pharmacy for the Eliquis to take advantage of the free month and reduced cost of future refills 7. with respect to your recent head injury - hopefully your concussion symptoms are fully resolved. However, if you get recurrent headaches, nausea, vomiting, visual disturbance, balance problems, etc - please seek medical attention Follow-up - see separate section Return to [facility] if - * you have worsening headaches * you have worsening shortness of breath * you have chest pains * you have any concerns about your blood pressure (your systolic blood pressure, the top number, is consistently over 200, etc) * you have concerns about bleeding due to the Eliquis * any other concerns It was our pleasure to care for you! -Dr Nicole Coding Diagnoses Paroxysmal atrial fibrillation I48.0 Primary hypertension I10 Hypertension type: primary hypertension Hypertensive urgency I16.0 Closed head injury S09.90XA Concussion S06.0XAA Dyslipidemia E78.5 Type 2 diabetes mellitus E11.9 Diabetes mellitus complication status: without complication
[2024-03-25 11:03] VITALS: PULSE 98
== END 2024-03-25 11:32 | disposition home or self-care (01) | DRG 310 ==
LOC: EDINP 18:21 → ED 18:21 → SUATTDRO 23:07 → 4W 03-23 00:43